=== PATIENT | male | born 1960 | race Caucasian/White ===

== ENCOUNTER 2017-03-27 18:47 | Emergency (ER) | payer OTHER ==
[2017-03-27 21:03] VITALS: BP 109/63; PULSE 92; RESP 19; TEMP 97.9; O2SAT 99
--- NOTE | 2017-03-27 21:53 | PD ---
HPI Chief Complaint: Psychiatric Symptoms Time Seen by Provider: 21:50 Travel History International Travel<30 days: No Contact w/Intl Traveler<30days: No Traveled to known affect area: No History of Present Illness HPI 56-year-old male that presents to the ED for evaluation of psychiatric illness. Patient was Mai acted by police after apparently he came to one of the police men and he told him that he wanted them to shoot him. Per patient he is been battling depression for years. He has a history of depression and anxiety and continues to take Wellbutrin as well as gabapentin but he's not been able to take it for the past 3 months for unclear reasons. He does state that he uses drugs including K2 and drinks starting today. He has no other medical issues. He denies any history of diabetes or high blood pressure. No pain or cuts. No other medical problems at this time. Symptoms appear to have worsened today secondary to drinking alcohol today worsening of depression. PFSH Past Medical History Anxiety: Yes Depression: Yes Social History Alcohol Use: Yes (sober x 2 years, started back today) Tobacco Use: No Substance Use: Yes (K2) Review of Systems Except as stated in HPI: all other systems reviewed are Neg Physical Exam Narrative GENERAL: SKIN: Warm and dry. HEAD: Atraumatic. Normocephalic. EYES: Pupils equal and round. No scleral icterus. No injection or drainage. ENT: No nasal bleeding or discharge. Mucous membranes pink and moist. Tongue is midline. No uvula deviation. NECK: Trachea midline. No JVD. CARDIOVASCULAR: Regular rate and rhythm. No murmurs, S3, S4. RESPIRATORY: No accessory muscle use. Clear to auscultation. Breath sounds equal bilaterally. GASTROINTESTINAL: Abdomen soft, non-tender, nondistended. Hepatic and splenic margins not palpable. MUSCULOSKELETAL: Extremities without clubbing, cyanosis, or edema. No obvious deformities. Full range of motion of the upper and lower extremities bilaterally. 2+ pulses bilaterally. NEUROLOGICAL: Awake and alert. No obvious cranial nerve deficits. Motor grossly within normal limits. Five out of 5 muscle strength in the arms and legs. Normal speech. PSYCHIATRIC: Appropriate mood and affect; insight and judgment normal. Data Data Last Documented VS Vital Signs Date Time Temp Pulse Resp B/P Pulse Ox O2 Delivery O2 Flow Rate FiO2 03/27/17 21:03 97.9 92 19 109/63 99 Room Air Orders Complete Blood Count With Diff (03/27/17 20:28) Comprehensive Metabolic Panel (03/27/17 20:28) Psych Screen (03/27/17 20:28) Drug Screen, Random Urine (03/27/17 20:28) Alcohol (Ethanol) (03/27/17 20:28) Salicylates (Aspirin) (03/27/17 20:28) Tylenol (Acetaminophen) (03/27/17 20:28) MDM Medical Decision Making Medical Screen Exam Complete: Yes Emergency Medical Condition: Yes Medical Record Reviewed: Yes Differential Diagnosis Depression versus suicidal ideation versus anxiety versus adjustment disorder versus mood disorder versus bipolar disorder versus schizophrenia versus paranoid disorder versus psychosis versus substance abuse versus alcohol abuse versus alcohol induced psychosis versus homicidality addition versus cutting versus personality disorder Narrative Course 56-year-old female that presents to the ED for elevation of psychiatric illness. Patient was properly examined and was found to have signs and symptoms very consistent what appears to be psychiatric illness. No sign of acute medical distress. Labs were drawn. Patient will be medically clear. Okay to be seen by psych. Mental health screening was discussed with the patient. Diagnosis Primary Impression: Acute depression Additional Impression: Substance abuse Hugo Renteria Mar 27, 2017 21:53
[2017-03-27 22:00] VITALS: BP 103/59; PULSE 84; RESP 16; O2SAT 97
[2017-03-27 23:02] LABS: AUTOMATED NEUTROPHIL # 3.9 TH/MM3 (1.8-7.7); BASOPHIL % 0.3 % (0.0-2.0); EOSINOPHIL # 0.4 TH/MM3 (0-0.4); HEMATOCRIT 39.9 % (39.0-51.0); HEMO FLAGS DIFF FINAL; LYMPH % 35.8 % (9.0-44.0); LYMPHOCYTE # 2.7 TH/MM3 (1.0-4.8); MEAN CELL VOLUME 87.5 FL (80.0-100.0); MEAN CORPUSCULAR HEMOGLOBIN 30.5 PG (27.0-34.0); MEAN CORPUSCULAR HGB CONC 34.9 % (32.0-36.0); MONO % 6.4 % (0.0-8.0); NEUT % 51.5 % (16.0-70.0); PLATELET COUNT 257 TH/MM3 (150-450); RED BLOOD COUNT 4.56 MIL/MM3 (4.50-5.90); RED CELL DISTRIBUTION WIDTH 14.2 % (11.6-17.2); WHITE BLOOD COUNT 7.5 TH/MM3 (4.0-11.0)
[2017-03-27 23:05] LABS: ACETAMINOPHEN LESS THAN 2.0 MCG/ML (10.0-30.0); ALT (GPT) 33 U/L (12-78); ANION GAP 12 MEQ/L (5-15); AST (GOT) 18 U/L (15-37); BICARBONATE 23.3 MEQ/L (21.0-32.0); BLOOD UREA NITROGEN 8 MG/DL (7-18); CHLORIDE 111 MEQ/L (98-107); GLOMERULAR FILTRATION RATE 76 ML/MIN (>89); POTASSIUM 3.5 MEQ/L (3.5-5.1); SODIUM (NA) 146 MEQ/L (136-145)
[2017-03-27 23:07] LABS: ALKALINE PHOSPHATASE 88 U/L (45-117); TOTAL BILIRUBIN ADULT 0.5 MG/DL (0.2-1.0)
[2017-03-28 02:10] VITALS: BP 99/52; PULSE 65; RESP 18; O2SAT 98
[2017-03-28 06:00] VITALS: BP 124/77; PULSE 65; RESP 17; O2SAT 96
[2017-03-28] MEDS ORDERED: ACETAMINOPHEN 500 MG CPLT PO ONE (06:15)
[2017-03-28 06:16] LABS: AMPHETAMINE, URINE NEG (NEG); BARBITURATES, URINE NEG (NEG); COCAINE, URINE NEG (NEG)
[2017-03-28 10:43] VITALS: BP 118/72; PULSE 82; RESP 18; TEMP 98.9; O2SAT 99
--- NOTE | 2017-03-28 13:03 | PD ---
History of Present Illness Chief Complaint: Psychiatric Symptoms Time Seen by Provider: 12:30 Travel History International Travel<30 Days: No Contact w/Intl Traveler<30days: No Known affected area: No Legal Status Legal Status: Mai Act Mai Act Signed By: Lala Reeves History of Present Illness: History of Present Illness HPI 56-year-old male with history of alcohol dependence and a reported hx of depression who presents to the ED under a BA initiated by DUGLAS . The BA alleges that he approached a police detention attendant and asked the officer to shoot him and end his life. The patient presented to ED with BAL of 149. He was monitored in J pod and he presented no suicidality and no behavioral concerns. EMR is reviewed and no previous contact with [facility]. The patient is seen this morning with nurse Anni. He is alert, oriented and cooperative. He is clinically sober. Speech is clear and logical, goal directed. There is no psychosis and no percy. No significant depression or anxiety noted. He denies any suicidal or homicidal ideation, intent or plan. and states " I'm better now that I am sober. It was the first time I drank in 2 years. I had 2 [employer]. I am not suicidal. Actually it's better that they brought me here otherwise I might have ended up in snf". Patient is also requesting assistance in getting back on Wellbutrin which he reports helped him in the past . He is sleeping well and eating well. 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 2 YRS AGO) Psychiatric History Psychiatric History Hx Psychiatric Treatment: HX: DEPRESSION AND ANXIETY. History of Inpatient Treatment: Yes Guns or firearms in home: No Social History Single male. Moved from [place] 3 months ago. Is unemployed. Homeless. Hx Alcohol Use: Yes (sober x 2 years, started back today) Hx Tobacco Use: No Hx Substance Use: Yes (ALCOHOL, K2) Substance Use Type: Alcohol Hx of Substance Use Treatment: Yes ([facility] in [place] x 2 months.) Family Psychiatric History Negative Allergies-Medications (Allergen,Severity, Reaction): Coded Allergies: No Known Allergies (Unverified , 03/28/17) Reported Meds & Prescriptions Reported Meds & Active Scripts Active No Active Prescriptions or Reported Medications Review of Systems Except as stated in HPI: all other systems reviewed are Neg Exam Alert: Yes [place]: Person (ox4) Mood: Calm Affect: Appropriate Speech: Clear, Logical Eye Contact: Normal Memory Intact: Comment (No gross abnor,mmality) Hallucinations: Other (Negative) Delusions: No Suicidal: Ideation (denies any) Homicidal: Ideation (denies any) Insight/Judgement Fair. Not impaired. MDM Medical Decision Making Medical Record Reviewed: Yes Assessment/Plan 56 year old male with reported hx of depression as well as alcohol dependence with relapse after a period of 2 years of sobriety, under a BA. He was acting aggressive and agitated and had asked the police to shoot him. This in context of intoxication. At this time the patient is clinically sober and denies any suicidal or homicidal ideation. he presented no suicidality while in J pod and is now requesting discharge. he is also requesting where he can follow up with psychiatric treatment. We will refer to [facility] BA as he does not meet criteria and does not present any behaviors or acute psychiatric symptomatology. Orders Complete Blood Count With Diff (03/27/17 20:28) Comprehensive Metabolic Panel (03/27/17 20:28) Psych Screen (03/27/17 20:28) Drug Screen, Random Urine (03/27/17 20:28) Alcohol (Ethanol) (03/27/17 20:28) Salicylates (Aspirin) (03/27/17 20:28) Tylenol (Acetaminophen) (03/27/17 20:28) Diet Regular Basic (03/28/17 Breakfast) Acetaminophen (Tylenol) (03/28/17 06:15) Diet Regular Basic (03/28/17 Lunch) Results Vital Signs Date Time Temp Pulse Resp B/P Pulse Ox O2 Delivery O2 Flow Rate FiO2 03/28/17 10:43 98.9 82 18 118/72 99 Room Air 03/28/17 06:00 65 17 124/77 96 Room Air 03/28/17 02:10 65 18 99/52 98 Room Air 03/27/17 22:00 84 16 103/59 97 Room Air 03/27/17 21:03 97.9 92 19 109/63 99 Room Air Laboratory Tests Test 03/27/17 03/28/17 22:35 06:04 White Blood Count 7.5 Red Blood Count 4.56 Hemoglobin 13.9 Hematocrit 39.9 Mean Corpuscular Volume 87.5 Mean Corpuscular Hemoglobin 30.5 Mean Corpuscular Hemoglobin 34.9 Concent Red Cell Distribution Width 14.2 Platelet Count 257 Mean Platelet Volume 8.6 Neutrophils (%) (Auto) 51.5 Lymphocytes (%) (Auto) 35.8 Monocytes (%) (Auto) 6.4 Eosinophils (%) (Auto) 6.0 Basophils (%) (Auto) 0.3 Neutrophils # (Auto) 3.9 Lymphocytes # (Auto) 2.7 Monocytes # (Auto) 0.5 Eosinophils # (Auto) 0.4 Basophils # (Auto) 0.0 CBC Comment DIFF FINAL Differential Comment Sodium Level 146 Potassium Level 3.5 Chloride Level 111 Carbon Dioxide Level 23.3 Anion Gap 12 Blood Urea Nitrogen 8 Creatinine 1.02 Estimat Glomerular Filtration 76 Rate Random Glucose 126 Calcium Level 9.2 Total Bilirubin 0.5 Aspartate Amino Transf 18 (AST/SGOT) Alanine Aminotransferase 33 (ALT/SGPT) Alkaline Phosphatase 88 Total Protein 6.7 Albumin 3.5 Salicylates Level LESS THAN 1.7 Acetaminophen Level LESS THAN 2.0 Ethyl Alcohol Level 149 Urine Opiates Screen NEG Urine Barbiturates Screen NEG Urine Amphetamines Screen NEG Urine Benzodiazepines Screen NEG Urine Cocaine Screen NEG Urine Cannabinoids Screen NEG Diagnosis Primary Impression: Alcohol dependence with acute alcoholic intoxication Additional Impression: Substance abuse Ruled Out: Acute depression Psychiatrically Cleared: Yes Patient Instructions: General Instructions Additional Instructions: Follow up with [facility] outpatient. Prescriptions No Active Prescriptions or Reported Meds Disposition: DISCHARGE HOME Condition: Stable Problem Qualifiers Mikaela Mercado Mar 28, 2017 13:02
== END 2017-03-28 13:28 | disposition home or self-care (01) ==
LOC: NEDAMB 18:47 → NEPJ 03-28 13:28
DX: F10.229 Alcohol dependence with intoxication, unspecified (principal); F19.10 Other psychoactive substance abuse, uncomplicated; F41.9 Anxiety disorder, unspecified; M17.0 Bilateral primary osteoarthritis of knee
CPT/HCPCS: 80053; 80307; 85025; 99284

== ENCOUNTER 2017-05-21 09:25 | Emergency (ER) | payer SELFPAY ==
[~2017-05-21] VITALS: Ht 180.3 cm; Wt 106.0 kg
[2017-05-21 09:28] VITALS: BP 119/68; PULSE 94; RESP 18; TEMP 98.1; O2SAT 96
--- NOTE | 2017-05-21 10:04 | PD ---
HPI Chief Complaint: Skin Problem Time Seen by Provider: 10:04 Travel History International Travel<30 days: No Contact w/Intl Traveler<30days: No Traveled to known affect area: No History of Present Illness HPI 56-year-old male presents to emergency Department with complaint of an itchy rash to bilateral upper extremities for greater than 1 month and now to his left neck just recently. Patient says he is homeless and he sleeps on concrete and cardboard boxes. He says he sleeps in different places. Denies fever or vomiting. Has environmental exposures as is only sleeping outside. He uses different soaps when he showers at the [employer]. Has not taken any medications or tried any treatments to alleviate his symptoms. Symptoms are mild in severity. Has no other medical complaints. No known allergies. No other modifying factors or associated signs and symptoms. PFSH Past Medical History Hx Anticoagulant Therapy: No Arthritis: Yes (OSTEOARTHRITIS IN BOTH KNEES) Anxiety: Yes Depression: Yes Cardiovascular Problems: No Chemotherapy: No Cerebrovascular Accident: No Diabetes: No Hypertension: No Respiratory: No Seizures: No ?: Not Past Surgical History Hysterectomy: No Joint Replacement: Yes ([employer]. 2 YRS AGO) Social History Alcohol Use: Yes (sober x 2 years, started back today) Tobacco Use: No Substance Use: Yes (ALCOHOL, K2) Allergies-Medications (Allergen,Severity, Reaction): Coded Allergies: No Known Allergies (Unverified , 05/21/17) Reported Meds & Prescriptions Reported Meds & Active Scripts Active Bactrim DS (Sulfamethoxazole-Trimethoprim) 800-160 Mg Tab 1 Tab PO BID 10 Days Keflex (Cephalexin) 500 Mg Cap 500 Mg PO Q6H 10 Days Review of Systems Except as stated in HPI: all other systems reviewed are Neg Physical Exam Narrative GENERAL: Well-nourished, well-developed male patient, in no acute distress; afebrile, nontoxic-appearing, disheveled SKIN: Warm and dry. Multiple lesions in different stages, some crusted, some scabbed, some dry to bilateral upper extremities and one lesion noted to the left neck and left upper back; no drainage noted to any of the areas; some are surrounded by very mild erythema. Bilateral upper extremities are supple and nontense with 2+ radial pulses and sensory intact without erythema or edema. HEAD: Atraumatic. Normocephalic. EYES: Pupils equal and round. No scleral icterus. No injection or drainage. ENT: Mucosa pink and moist. Airway patent. NECK: Trachea midline. CARDIOVASCULAR: Regular rate. RESPIRATORY: No accessory muscle use. GASTROINTESTINAL: Rounded. MUSCULOSKELETAL: No obvious deformities. No clubbing. No cyanosis. No edema. NEUROLOGICAL: Awake and alert. Oriented 3. No obvious cranial nerve deficits. Motor grossly within normal limits. Normal speech. PSYCHIATRIC: Appropriate mood and affect; insight and judgment normal. Data Data Last Documented VS Vital Signs Date Time Temp Pulse Resp B/P (MAP) Pulse Ox O2 Delivery O2 Flow Rate FiO2 05/21/17 09:28 98.1 94 18 119/68 (85) 96 MDM Medical Decision Making Medical Screen Exam Complete: Yes Emergency Medical Condition: Yes Medical Record Reviewed: Yes Differential Diagnosis Impetigo, Staph infection, MRSA, bedbugs, contact dermatitis, hives Narrative Course 56-year-old male with nonspecific skin eruption. Patient states rash is itchy and it seems to be consistent with bedbugs. It has been over a month since he' s had the rash. I will treat the patient with Bactrim and Keflex for possible skin infection. She was afebrile and nontoxic-appearing. He denies fever, vomiting. Bactrim and Keflex prescriptions were filled and supplied to the patient for home. Instructed patient to follow up with primary care provider. Patient verbalizes understanding and agreement with treatment plan. Patient is medically cleared and stable for discharge. Discussed reasons to return to the emergency department. Patient agrees with treatment plan. The patients vital signs are stable and the patient is stable for outpatient follow-up and treatment. Patient discharged home, stable and in no acute distress. Diagnosis Primary Impression: Rash and other nonspecific skin eruption Referrals: [facility] Primary Care Physician Patient Instructions: Bed Bugs (ED), General Instructions, MRSA (Methicillin- Resistant Staphylococcus Aureus) (ED) Additional Instructions: [id number] topicals to reduce itch Benadryl as directed and as needed to reduce itch Follow-up with your primary care provider Return to the emergency department immediately with worsening of symptoms Med/Other Pt SpecificInfo: Prescription(s) given Scripts Sulfamethoxazole-Trimethoprim (Bactrim DS) 800-160 Mg Tab 1 TAB PO BID for Infection for 10 Days, TAB 0 Refills Prov: Marychuy Alfaro 05/21/17 Cephalexin (Keflex) 500 Mg Cap 500 MG PO Q6H for Infection for 10 Days, CAP 0 Refills Prov: Marychuy Alfaro 05/21/17 Disposition: 01 DISCHARGE HOME Condition: Stable Marychuy Alfaro May 21, 2017 10:04
[2017-05-21] MEDS ORDERED: CEPH-460 PO (10:08)
[2017-05-21] MEDS ORDERED: BACT800T5 PO (10:08)
== END 2017-05-21 10:22 | disposition home or self-care (01) ==
LOC: NEPK 09:25
DX: R21 Rash and other nonspecific skin eruption (principal); M19.90 Unspecified osteoarthritis, unspecified site; F41.9 Anxiety disorder, unspecified; F32.9 Major depressive disorder, single episode, unspecified; Z59.0 Homelessness
CPT/HCPCS: 99284

== ENCOUNTER 2017-08-12 19:39 | Emergency (ER) | payer OTHER ==
[~2017-08-12 19:39] MED LIST: BACT800T5 PO; CEPH-460 PO
[2017-08-12 21:32] LABS: AUTOMATED NEUTROPHIL # 5.3 TH/MM3 (1.8-7.7); BASOPHIL % 0.4 % (0.0-2.0); EOSINOPHIL # 0.4 TH/MM3 (0-0.4); EOSINOPHIL % 4.4 % (0.0-4.0); HEMATOCRIT 37.2 % (39.0-51.0); HEMO FLAGS DIFF FINAL; LYMPH % 31.9 % (9.0-44.0); LYMPHOCYTE # 2.9 TH/MM3 (1.0-4.8); MEAN CELL VOLUME 87.4 FL (80.0-100.0); MEAN CORPUSCULAR HEMOGLOBIN 31.3 PG (27.0-34.0); MEAN CORPUSCULAR HGB CONC 35.9 % (32.0-36.0); NEUT % 57.3 % (16.0-70.0); PLATELET COUNT 206 TH/MM3 (150-450); RED BLOOD COUNT 4.26 MIL/MM3 (4.50-5.90); RED CELL DISTRIBUTION WIDTH 13.9 % (11.6-17.2); WHITE BLOOD COUNT 9.2 TH/MM3 (4.0-11.0)
[2017-08-12 21:50] LABS: ALT (GPT) 23 U/L (12-78)
[2017-08-12 21:51] VITALS: BP 106/57; PULSE 66; RESP 16; TEMP 97.6; O2SAT 96
[2017-08-12 21:52] LABS: ALKALINE PHOSPHATASE 98 U/L (45-117); TOTAL BILIRUBIN ADULT 0.4 MG/DL (0.2-1.0)
[2017-08-12 21:54] LABS: ANION GAP 6 MEQ/L (5-15); AST (GOT) 24 U/L (15-37); BICARBONATE 23.6 MEQ/L (21.0-32.0); BLOOD UREA NITROGEN 14 MG/DL (7-18); CHLORIDE 111 MEQ/L (98-107); GLOMERULAR FILTRATION RATE 58 ML/MIN (>89); POTASSIUM 3.7 MEQ/L (3.5-5.1); SODIUM (NA) 141 MEQ/L (136-145)
[2017-08-12 22:00] LABS: ACETAMINOPHEN LESS THAN 2.0 MCG/ML (10.0-30.0); ALCOHOL LESS THAN 3 MG/DL (0-5)
[2017-08-12] MEDS ORDERED: IBUPROFEN 800 MG TAB PO ONE (22:15)
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
[2017-08-13 01:43] VITALS: BP 102/60; PULSE 62; RESP 20; O2SAT 98
[2017-08-13 06:22] VITALS: BP 140/77; PULSE 56; RESP 20; O2SAT 100
[2017-08-13 18:38] VITALS: BP 131/73; PULSE 56; RESP 17; O2SAT 98
[2017-08-13] MEDS ORDERED: IBUPROFEN 800 MG TAB PO ONE (18:45)
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
== END 2017-08-13 20:52 ==
LOC: NEDAMB 19:39 → NEPJ 08-13 20:52
DX: F10.10 Alcohol abuse, uncomplicated (principal); F32.9 Major depressive disorder, single episode, unspecified; F41.9 Anxiety disorder, unspecified; M17.0 Bilateral primary osteoarthritis of knee
CPT/HCPCS: 80053; 80307; 85025; 99284

== ENCOUNTER 2017-09-07 18:41 | Inpatient (IN) | payer OTHER ==
[~2017-09-07] VITALS: Ht 180.3 cm; Wt 101.4 kg
[2017-09-07 19:10] VITALS: BP 117/70; PULSE 62; RESP 18; TEMP 98.8; O2SAT 99
--- NOTE | 2017-09-07 19:45 | PD ---
HPI Chief Complaint: Psychiatric Symptoms Time Seen by Provider: 19:40 Travel History International Travel<30 days: No Contact w/Intl Traveler<30days: No Traveled to known affect area: No History of Present Illness HPI 56-year-old white male presents to emergency department under Mai act by PD. Patient had notified police that if he did not get help for his K2 addiction he would kill himself. He has notified police that he would d[place] himself in the river. The patient here states that he is homeless on the streets. He is been living in the area for the past few years. He had moved from [place] to [place] then to [facility]. This is a patient who had been seen here in the past. Patient has been off his medications now for several months. He states that he cannot get anyone to fill his medications for free. When he gets money he states that he would prefer to smoke K2 and marijuana. Patient denies any homicidal ideation. No toxic ingestion. No recent illness. He has had a abrasion to his right wrist from a fall earlier this past week. [place] the bridge. PFSH Past Medical History Hx Anticoagulant Therapy: No Arthritis: Yes (OSTEOARTHRITIS IN BOTH KNEES) Anxiety: Yes Depression: Yes Cardiovascular Problems: No Chemotherapy: No Cerebrovascular Accident: No Diabetes: No Diminished Hearing: No Hypertension: No Respiratory: No Seizures: No Tetanus Vaccination: < 5 Years Past Surgical History Narrative Surgical Rotator cuff repair Hysterectomy: No Social History Alcohol Use: Yes (sober x 2 years, started back 06/2017) Tobacco Use: No Substance Use: Yes (DAILY K2) Allergies-Medications (Allergen,Severity, Reaction): Coded Allergies: No Known Allergies (Unverified , 05/21/17) Reported Meds & Prescriptions Reported Meds & Active Scripts Active No Active Prescriptions or Reported Medications Review of Systems General / Constitutional: No: Fever Eyes: No: Visual changes HENT: No: Headaches Cardiovascular: No: Chest Pain or Discomfort Respiratory: No: Shortness of Breath Gastrointestinal: No: Abdominal Pain Genitourinary: No: Dysuria Musculoskeletal: No: Pain Skin: No Rash Neurologic: No: Weakness Psychiatric: Positive: Suicidal Ideations, Mood Disorder, Substance Abuse, No: Anxiety, Depression, Disorder of Thought, Homicidal Ideation Endocrine: No: Polydipsia Hematologic/Lymphatic: No: Easy Bruising Physical Exam Narrative GENERAL: Well-nourished, well-developed patient. SKIN: Warm and dry. There is a healing abrasion to the right wrist HEAD: Normocephalic and atraumatic. EYES: No scleral icterus. No injection or drainage. ENT: No nasal drainage noted. Mucous membranes pink. Airway patent. NECK: Supple, trachea midline. Moves head freely without obvious discomfort. CARDIOVASCULAR: Regular rate and rhythm without murmurs, gallops, or rubs. RESPIRATORY: Breath sounds equal bilaterally. No accessory muscle use. GASTROINTESTINAL: Abdomen soft, non-tender, nondistended. EXTREMITIES: No cyanosis or edema. BACK: Nontender without obvious deformity. No CVA tenderness. NEURO: Patient is alert and oriented. no sensorimotor deficits. Nonfocal. Normal speech. PSYCH: No delusions. No auditory or visual hallucinations. Data Data Last Documented VS Vital Signs Date Time Temp Pulse Resp B/P (MAP) Pulse Ox O2 Delivery O2 Flow Rate FiO2 09/07/17 19:10 98.8 62 18 117/70 (86) 99 Room Air Orders Orders Psych Screen (09/07/17 19:06) Drug Screen, Random Urine (09/07/17 19:06) Alcohol (Ethanol) (09/07/17 19:06) Labs Laboratory Tests Test 09/07/17 19:15 09/07/17 21:05 Ethyl Alcohol Level LESS THAN 3 MG/DL Urine Opiates Screen NEG Urine Barbiturates Screen NEG Urine Amphetamines Screen NEG Urine Benzodiazepines Screen NEG Urine Cocaine Screen NEG Urine Cannabinoids Screen POS MDM Medical Decision Making Medical Screen Exam Complete: Yes Emergency Medical Condition: Yes Medical Record Reviewed: Yes Interpretation(s) Laboratory Tests Test 09/07/17 19:15 09/07/17 21:05 Ethyl Alcohol Level LESS THAN 3 MG/DL Urine Opiates Screen NEG Urine Barbiturates Screen NEG Urine Amphetamines Screen NEG Urine Benzodiazepines Screen NEG Urine Cocaine Screen NEG Urine Cannabinoids Screen POS Differential Diagnosis MDM: High Differential diagnoses: Schizophrenia, schizoaffective disorder, bipolar, anxiety, depression, adjustment reaction, mood disorder NOS, ODD, depressive disorder NOS, dementia, dementia with agitation, psychosis NOS, substance induced mood disorder, DMDD, Asperger syndrome, infection,electrolyte abnormality, malingering. Narrative Course Mental health screening discussed with the patient. Psychiatric screen ordered. The patient's been medically cleared. This is medical clearance for psychiatric admission Diagnosis Primary Impression: Medical clearance for psychiatric admission Additional Impression: Substance abuse Scripts No Active Prescriptions or Reported Meds Condition: Stable Jesse Smith Sep 07, 2017 19:45
[2017-09-07 22:22] VITALS: BP 107/51; PULSE 51; RESP 19; TEMP 98.3; O2SAT 95
[2017-09-08 05:32] VITALS: BP 123/68; PULSE 66; RESP 18; TEMP 98.6; O2SAT 97
[2017-09-08] MEDS ORDERED: NICOTINE 21 MG/24 HR PATCH T-DERMAL PRN (10:15)
[2017-09-08] MEDS ORDERED: BENZTROPINE MESYLATE 2 MG/2 ML VIAL IM PRN (10:15)
[2017-09-08] MEDS ORDERED: hydrOXYzine HCL 50 MG TAB PO PRN (10:15)
[2017-09-08] MEDS ORDERED: ACETAMINOPHEN 325 MG TAB PO PRN (10:15)
[2017-09-08] MEDS ORDERED: ALUMINUM/MAGNESIUM/SIMETH 30 ML CUP PO PRN (10:15)
[2017-09-08] MEDS ORDERED: MAGNESIUM HYDROXIDE SUSP 30 ML CUP PO PRN (10:15)
[2017-09-08] MEDS ORDERED: BENZTROPINE MESYLATE 1 MG TAB PO PRN (10:15)
--- NOTE | 2017-09-08 11:06 | MH ---
cc: DONIS RICHARDSON DATE OF ADMISSION: 09/08/2017 ADMITTING DIAGNOSES 1. Adjustment disorder with depressed mood, F43.21. 2. Polysubstance abuse including cannabis, K2 and historically alcohol, F19.10. LEGAL STATUS The patient is capacitated to consent for admission and for medications. Voluntary status. HISTORY OF PRESENT ILLNESS Mr. Leonardo is a 56-year-old male with a reported history of depression and anxiety who presents under a Mai Act by law enforcement alleging that the patient called saying that he had nothing to live for and if he did not receive any help he was going to drown himself in the river. He told the officers that he has been smoking K2 and cannot find a way to quit. Reviewing the electronic medical record, I note that the patient was seen in consultation back in March of this year by Nurse Practitioner Rogelio when he presented after asking an officer to shoot him in the setting of alcohol intoxication. The patient seen and examined. Chart reviewed. Case discussed with nursing staff. On my examination today, the patient presents as tearful and dysphoric. He says that he has been smoking K2 because he knows that other people have by doing so. He says that he is smoking it "hoping to go to sleep and not wake up." He tells me that he is distressed because "I'm just having a very lonely homeless life. I don't want to do it anymore." He reports depression, hopelessness, worthless feelings. No reported sleep or appetite disturbances. Anhedonia is present. No hypomanic or manic symptoms now or by history. He denies audiovisual hallucinations. I can elicit no delusional material. The remainder of the psychiatric ROS is negative. He has no physical complaints at this time. PAST PSYCHIATRIC HISTORY The patient reports a history of depression and anxiety. He is not currently under the care of a psychiatrist. Apparently he has been referred for outpatient psychiatric services but has been frustrated at the wait time and has not followed up. He reports he has done best in the past on Wellbutrin 300 mg a day and gabapentin 300 mg three times a day but has not taken any psychotropics since December of this year. No reported seizure history or history of eating disorder. He denies any history of psychiatric admissions. He reports one previous suicide attempt by overdose on Tylenol PM. FAMILY HISTORY The patient denies a family history of suicide or serious mental illness. CHEMICAL DEPENDENCY HISTORY The patient reports that lately he has been smoking K2 and cannabis. He does not report any recent alcohol use or other substance use. SOCIAL HISTORY The patient is homeless. He reports that he had been residing in a homeless care home or some sort of transitional housing until about 10 months ago when he was kicked out reportedly because he took his cell phone into his room which was an infraction of the rules of the facility. He has a 6th grade education. He does not work and has no income. He is single with no children. Denies any history. Denies any legal history. No reported access to guns or firearms. PAST MEDICAL HISTORY The patient denies any medical history. MEDICATIONS On no medications presently. ALLERGIES NO KNOWN ALLERGIES. PHYSICAL EXAMINATION VITAL SIGNS: Temp 98.6, pulse 66, respirations 18, blood pressure 123/68, pulse oximetry 97% on room air. Physical examination was completed by the ED provider. On my examination today, the patient appears to be in no acute physical distress. No motor abnormalities noted. LABORATORIES Laboratories reviewed: Urine toxicology positive for cannabinoids. Alcohol level undetectable. No CBC or CMP or other laboratories were performed this admission. MENTAL STATUS EXAMINATION The patient is in hospital attire. He is somewhat disheveled but maintaining basic hygiene. He is awake and alert and oriented x4. No evidence of delirium. No motor abnormalities noted. Speech is within normal limits for rate, tone and volume. Language and fund of knowledge are average. Focus and concentration intact. Memory grossly intact on clinical exam. Mood is depressed and affect is restricted, tearful and dysphoric. Thought process linear. No loosening of associations. No delusional material elicited. Denies audiovisual hallucinations. Endorses vague suicidal ideation with plan to smoke enough K2 to kill him. No reported urge to hurt himself on the inpatient unit. No homicidal ideation. Insight and judgment are fair at best. ASSESSMENT AND PLAN This is a 56-year-old male with psychiatric history as detailed above who presents under a Mai Act. On my examination today, the patient reports ongoing dysphoria, chiefly related to his social situation. It is possible that he is malingering his current psychiatric symptoms for care home although his tearfulness and general presentation do not seem terribly ingenuine. I will plan to admit the patient to the inpatient unit for observation and also to resume the medications that were reportedly previously efficacious for him. Admit inpatient. Voluntary status. Check a CBC and CMP now and check a TSH, lipid panel and hemoglobin A1c in the morning. Barring any clinically significant laboratory abnormalities, I will plan to start the patient on Wellbutrin SR 150 mg daily with plans to titrate to reportedly efficacious dose of 300 mg in divided doses. I will also resume his gabapentin 300 mg three times daily. I will provide Atarax as needed for anxiety, Cogentin as needed for EPS, Benadryl as needed for sleep. The patient does not report any recent GABAergic use and we will monitor for signs of withdrawal. Vitals every shift. Counselor to see. Disposition planning. Estimated length of stay: 3-5 days. Donis Richardson DC/JUDI /9:55 AM /10:26 AM ALINA
[2017-09-08] MEDS: REMOVE OLD NICODERM (NICOTINE) PATCH T-DERMAL SCH (12:50)
[2017-09-08 12:55] VITALS: BP 142/87; PULSE 61; RESP 18; TEMP 97.5; O2SAT 98
[2017-09-08] MEDS: GABAPENTIN 300 MG CAP PO SCH ×2 (13:34→17:07)
[2017-09-08 16:30] LABS: AUTOMATED NEUTROPHIL # 5.5 TH/MM3 (1.8-7.7); BASOPHIL % 0.3 % (0.0-2.0); EOSINOPHIL # 0.4 TH/MM3 (0-0.4); EOSINOPHIL % 3.8 % (0.0-4.0); HEMOGLOBIN 14.5 GM/DL (13.0-17.0); LYMPH % 29.5 % (9.0-44.0); LYMPHOCYTE # 2.8 TH/MM3 (1.0-4.8); MEAN CELL VOLUME 87.7 FL (80.0-100.0); MEAN CORPUSCULAR HEMOGLOBIN 30.9 PG (27.0-34.0); MEAN CORPUSCULAR HGB CONC 35.3 % (32.0-36.0); MEAN PLATELET VOLUME 9.7 FL (7.0-11.0); MONO % 7.1 % (0.0-8.0); MONOCYTE # 0.7 TH/MM3 (0-0.9); NEUT % 59.3 % (16.0-70.0); PLATELET COUNT 274 TH/MM3 (150-450); RED BLOOD COUNT 4.68 MIL/MM3 (4.50-5.90); RED CELL DISTRIBUTION WIDTH 13.8 % (11.6-17.2); WHITE BLOOD COUNT 9.3 TH/MM3 (4.0-11.0)
[2017-09-08 16:54] LABS: ALBUMIN 3.9 GM/DL (3.4-5.0); AST (GOT) 14 U/L (15-37); BICARBONATE 27.7 MEQ/L (21.0-32.0); BLOOD UREA NITROGEN 16 MG/DL (7-18); CALCIUM 10.3 MG/DL (8.5-10.1); CHLORIDE 103 MEQ/L (98-107); CREATININE 1.17 MG/DL (0.60-1.30); GLOMERULAR FILTRATION RATE 65 ML/MIN (>89); GLUCOSE,RANDOM 90 MG/DL (74-106); SODIUM (NA) 139 MEQ/L (136-145)
[2017-09-08 16:56] LABS: ALT (GPT) 22 U/L (12-78)
[2017-09-08 16:58] LABS: ALKALINE PHOSPHATASE 92 U/L (45-117); TOTAL BILIRUBIN ADULT 0.6 MG/DL (0.2-1.0); TOTAL PROTEIN 7.5 GM/DL (6.4-8.2)
[2017-09-08 18:14] VITALS: BP 118/76; PULSE 63; RESP 18; TEMP 98; O2SAT 100
[2017-09-08] MEDS: diphenhydrAMINE HCL 50 MG CAP PO PRN (20:53)
[2017-09-09 06:01] VITALS: BP 117/68; PULSE 70; RESP 16; TEMP 97.5; O2SAT 96
[2017-09-09] MEDS: GABAPENTIN 300 MG CAP PO SCH ×3 (08:44→17:19)
[2017-09-09] MEDS: buPROPion HCL 150 MG SUSTAINED RELEASE TAB PO SCH (08:44)
[2017-09-09 10:21] LABS: CHOLESTEROL 202 MG/DL (120-200); TRIGLYCERIDES 146 MG/DL (42-150)
[2017-09-09 10:30] LABS: HDL CHOLESTEROL 54.5 MG/DL (40.0-60.0); LDL CHOLESTEROL 118 MG/DL (0-99)
[2017-09-09 12:57] LABS: HEMOGLOBIN A1C 5.1 % (4.3-6.0)
--- NOTE | 2017-09-09 14:59 | HHI.PYPN ---
Subjective Remarks Pt seen and discussed with staff. He reports that he is still depressed but feeling a better today. He reports decreased SI. This afternoon, he became agitated and rambled about tax payers paying for his hospitalization and demanding discharge. He calmed down. During rounds he states that he is worried about being able to pay for medications without insurance at discharge. He states that he has tried several SSRIs but wellbutrin is only antidepressant that has consistently worked for him. He states that K2 is $5 and he has been using it as a substitute for treatment but desires sobriety. Mental Status Examination Appearance: Appropriate Consciousness: Alert Orientation: x4 Language: Adequate Fund of Knowledge: Adequate Attention and Concentration: Adequate Memory: Unremarkable Mood: Sad, Irritable Affect: Labile Thought Process & Associations: Intact Thought Content: Appropriate Hallucination Type: None Delusion Type: None Suicidal Ideation: Yes (decreased, intermittent) Suicidal Plan: No Suicidal Intention: No Homicidal Ideation: No Homicidal Plan: No Homicidal Intention: No Results Labs Test 09/08/17 15:53 09/09/17 08:55 White Blood Count 9.3 TH/MM3 Red Blood Count 4.68 MIL/MM3 Hemoglobin 14.5 GM/DL Hematocrit 41.0 % Mean Corpuscular Volume 87.7 FL Mean Corpuscular Hemoglobin 30.9 PG Mean Corpuscular Hemoglobin Concent 35.3 % Red Cell Distribution Width 13.8 % Platelet Count 274 TH/MM3 Mean Platelet Volume 9.7 FL Neutrophils (%) (Auto) 59.3 % Lymphocytes (%) (Auto) 29.5 % Monocytes (%) (Auto) 7.1 % Eosinophils (%) (Auto) 3.8 % Basophils (%) (Auto) 0.3 % Neutrophils # (Auto) 5.5 TH/MM3 Lymphocytes # (Auto) 2.8 TH/MM3 Monocytes # (Auto) 0.7 TH/MM3 Eosinophils # (Auto) 0.4 TH/MM3 Basophils # (Auto) 0.0 TH/MM3 CBC Comment DIFF FINAL Differential Comment Blood Urea Nitrogen 16 MG/DL Creatinine 1.17 MG/DL Random Glucose 90 MG/DL Total Protein 7.5 GM/DL Albumin 3.9 GM/DL Calcium Level 10.3 MG/DL Alkaline Phosphatase 92 U/L Aspartate Amino Transf (AST/SGOT) 14 U/L Alanine Aminotransferase (ALT/SGPT) 22 U/L Total Bilirubin 0.6 MG/DL Sodium Level 139 MEQ/L Potassium Level 4.1 MEQ/L Chloride Level 103 MEQ/L Carbon Dioxide Level 27.7 MEQ/L Anion Gap 8 MEQ/L Estimat Glomerular Filtration Rate 65 ML/MIN Hemoglobin A1c 5.1 % Triglycerides Level 146 MG/DL Cholesterol Level 202 MG/DL LDL Cholesterol 118 MG/DL HDL Cholesterol 54.5 MG/DL Cholesterol/HDL Ratio 3.70 RATIO Thyroid Stimulating Hormone 3rd Gen 2.010 uIU/ML Vitals/IOs Vital Signs Date Time Temp Pulse Resp B/P (MAP) Pulse Ox O2 Delivery O2 Flow Rate FiO2 09/09/17 06:01 97.5 70 16 117/68 (84) 96 09/08/17 05:32 Room Air Assessment & Plan Problem List: (1) Acute depression ICD Codes: F32.9 - Major depressive disorder, single episode, unspecified Status: Acute (2) Substance abuse ICD Codes: F19.10 - Other psychoactive substance abuse, uncomplicated Status: Acute Assessment & Plan Continue current tx plan Estimated LOS: days Justification for Cont. Inpt. monitoring for safety Maryann Galan MD Sep 09, 2017 14:59
[2017-09-09 16:54] VITALS: BP 154/105; PULSE 64; RESP 18; TEMP 98.7; O2SAT 97
[2017-09-09] MEDS: REMOVE OLD NICODERM (NICOTINE) PATCH T-DERMAL SCH (21:00)
[2017-09-09] MEDS: diphenhydrAMINE HCL 50 MG CAP PO PRN (21:43)
[2017-09-10 05:55] VITALS: BP 128/67; PULSE 83; RESP 17; TEMP 98.4; O2SAT 96
[2017-09-10] MEDS: buPROPion HCL 150 MG SUSTAINED RELEASE TAB PO SCH ×2 (09:09→13:27)
[2017-09-10] MEDS: GABAPENTIN 300 MG CAP PO SCH ×3 (09:09→17:47)
--- NOTE | 2017-09-10 11:39 | HHI.PYPN ---
Subjective Remarks Patient seen and examined with nurse. Chart reviewed. Case discussed with nursing staff. On my examination today, mood is slowly improving. He denies any SI or HI. Denies AVH. He says that he uses drawing as a coping mechanism and has produced some very precise geometric sketches of football team names. Denies side effects from medications. Says that gabapentin is helping with knee pain. He would like to titrate his Wellbutrin back to previously reported efficacious dose. No other physical complaints. Review of Systems Except as stated in HPI: all other systems reviewed are Neg Mental Status Examination Appearance: Appropriate Consciousness: Alert Orientation: x4 Motor Activity: Normal gait, Other (no motoric abnormalities noted) Speech: Unremarkable Language: Adequate Fund of Knowledge: Adequate Attention and Concentration: Adequate Memory: Unremarkable Mood: Sad (improving) Affect: Appropriate Thought Process & Associations: Intact, Logical, Linear Thought Content: Appropriate Hallucination Type: None Delusion Type: None Suicidal Ideation: No Suicidal Plan: No Suicidal Intention: No Homicidal Ideation: No Homicidal Plan: No Homicidal Intention: No Insight: Fair Judgment: Adequate (fair) Results Labs Labs reviewed. No new labs. Vitals/IOs Vital Signs Date Time Temp Pulse Resp B/P (MAP) Pulse Ox O2 Delivery O2 Flow Rate FiO2 09/10/17 05:55 98.4 83 17 128/67 (87) 96 09/08/17 05:32 Room Air Assessment & Plan Problem List: (1) Acute depression ICD Codes: F32.9 - Major depressive disorder, single episode, unspecified Status: Acute (2) Substance abuse ICD Codes: F19.10 - Other psychoactive substance abuse, uncomplicated Status: Acute Assessment & Plan Titrate Wellbutrin to 150 mg twice daily to target low mood. Check BMP in the morning to follow-up GFR. Continue to monitor on an inpatient unit. Continue other medications and care as ordered. Justification for Cont. Inpt. Med changes. High risk for decompensation and less restrictive environment. Discharge Planning Pending psychiatric stabilization Request HC Surrog/Guard Advoc?: No William Richardson MD Sep 10, 2017 11:39
[2017-09-10 17:00] VITALS: BP 143/74; PULSE 75; RESP 18; TEMP 97.4; O2SAT 97
[2017-09-10] MEDS: diphenhydrAMINE HCL 50 MG CAP PO PRN (20:51)
[2017-09-10] MEDS: REMOVE OLD NICODERM (NICOTINE) PATCH T-DERMAL SCH (20:52)
[2017-09-11 06:50] VITALS: BP 124/71; PULSE 62; RESP 18; TEMP 97.9
[2017-09-11 07:56] LABS: BICARBONATE 29.8 MEQ/L (21.0-32.0); CALCIUM 10.3 MG/DL (8.5-10.1)
[2017-09-11 07:57] LABS: CREATININE 1.24 MG/DL (0.60-1.30)
[2017-09-11] MEDS: GABAPENTIN 300 MG CAP PO SCH ×3 (08:34→17:09)
[2017-09-11] MEDS: buPROPion HCL 150 MG SUSTAINED RELEASE TAB PO SCH ×2 (08:34→15:00)
--- NOTE | 2017-09-11 13:20 | HHI.PYPN ---
Subjective Remarks Patient seen in [facility] with nurse Arellano, chart review, patient compliant medication. Patient continues somewhat anxious nervous in irritable though denies suicidality. He states that it would be no trouble if he were . Has been no behavioral issues.. Feels medication is time to help somewhat. He states he somewhat's with no funding. Except Sunday he makes his drawings. We did discuss possibility of sober living situation such as [facility] . Will of counselor give him information concerning that. He seemed quite agreeable to investigating it. For now continue treatment will continue to titrate the Wellbutrin S Review of Systems Except as stated in HPI: all other systems reviewed are Neg Mental Status Examination Appearance: Appropriate Consciousness: Alert Orientation: x4 Motor Activity: Normal gait, Other (no motoric abnormalities noted) Speech: Unremarkable Language: Adequate Fund of Knowledge: Adequate Attention and Concentration: Adequate Memory: Unremarkable Mood: Sad (improving) Affect: Appropriate Thought Process & Associations: Intact, Logical, Linear Thought Content: Appropriate Hallucination Type: None Delusion Type: None Suicidal Ideation: No Suicidal Plan: No Suicidal Intention: No Homicidal Ideation: No Homicidal Plan: No Homicidal Intention: No Insight: Fair Judgment: Adequate (fair) Results Labs Test 09/11/17 06:58 Blood Urea Nitrogen 23 MG/DL Creatinine 1.24 MG/DL Random Glucose 101 MG/DL Calcium Level 10.3 MG/DL Sodium Level 139 MEQ/L Potassium Level 4.7 MEQ/L Chloride Level 106 MEQ/L Carbon Dioxide Level 29.8 MEQ/L Anion Gap 3 MEQ/L Estimat Glomerular Filtration Rate 61 ML/MIN Vitals/IOs Vital Signs Date Time Temp Pulse Resp B/P (MAP) Pulse Ox O2 Delivery O2 Flow Rate FiO2 09/11/17 06:50 97.9 62 18 124/71 (88) 09/10/17 17:00 97 09/08/17 05:32 Room Air Intake and Output 09/11/17 09/11/17 09/12/17 08:00 16:00 00:00 Intake Total 240 ml Balance 240 ml Assessment & Plan Problem List: (1) Substance abuse ICD Codes: F19.10 - Other psychoactive substance abuse, uncomplicated Status: Acute (2) Severe major depression, single episode, without psychotic features ICD Codes: F32.2 - Major depressive disorder, single episode, severe without psychotic features Assessment & Plan Estimated LOS: days patient continues depressed though today he denies suicidality. He has been compliant with medication. We did discuss possible placement issues Justification for Cont. Inpt. At this time patient will decompensate with placement lower level of care Discharge Planning Continue work on placement issues perhaps a sober living house locally Request HC Surrog/Guard Advoc?: No Delbert Islas MD Sep 11, 2017 13:20
[2017-09-11 18:34] VITALS: BP 125/71; PULSE 73; RESP 18; TEMP 98.3; O2SAT 94
[2017-09-11 18:35] VITALS: BP 125/71; PULSE 73; RESP 18; TEMP 98.3; O2SAT 94
[2017-09-11] MEDS: diphenhydrAMINE HCL 50 MG CAP PO PRN (20:33)
[2017-09-12 05:47] VITALS: BP 110/69; PULSE 62; RESP 17; TEMP 97.8; O2SAT 95
[2017-09-12 08:42] LABS: BICARBONATE 25.3 MEQ/L (21.0-32.0); BLOOD UREA NITROGEN 21 MG/DL (7-18); CALCIUM 10.3 MG/DL (8.5-10.1); CHLORIDE 104 MEQ/L (98-107); CREATININE 1.15 MG/DL (0.60-1.30); GLOMERULAR FILTRATION RATE 66 ML/MIN (>89); GLUCOSE,RANDOM 112 MG/DL (74-106); SODIUM (NA) 137 MEQ/L (136-145)
[2017-09-12 08:44] LABS: CHOLESTEROL 235 MG/DL (120-200); TRIGLYCERIDES 198 MG/DL (42-150)
[2017-09-12 08:46] LABS: CHOLESTEROL/ HDL RATIO 4.63 RATIO; HDL CHOLESTEROL 50.7 MG/DL (40.0-60.0); LDL CHOLESTEROL 145 MG/DL (0-99)
[2017-09-12] MEDS: NICOTINE 21 MG/24 HR PATCH T-DERMAL SCH (09:00)
[2017-09-12] MEDS: buPROPion HCL 150 MG SUSTAINED RELEASE TAB PO SCH ×2 (09:38→14:59)
[2017-09-12] MEDS: GABAPENTIN 300 MG CAP PO SCH ×3 (09:38→18:49)
--- NOTE | 2017-09-12 12:46 | HHI.PYPN ---
Subjective Remarks Patient seen today in his room with nurse gloria and counselor Rena, chart review, patient compliant medication. Patient still complains of some anxiety and nervousness, weakness insight into the fact that he is back on his medication at a been successful in the past. He knows it will take some time from them to take effect. He continues concern about placement. I discussed the fact that he is reaching his maximum benefit of this hospitalization. He wishes to attempt sea . I agreed to allow him today to attempt to find a placement otherwise patient will be discharged tomorrow as homeless placement with follow-up through [facility] Review of Systems Except as stated in HPI: all other systems reviewed are Neg Mental Status Examination Appearance: Appropriate Consciousness: Alert Orientation: x4 Motor Activity: Normal gait, Other (no motoric abnormalities noted) Speech: Unremarkable Language: Adequate Fund of Knowledge: Adequate Attention and Concentration: Adequate Memory: Unremarkable Mood: Sad (improving) Affect: Appropriate Thought Process & Associations: Intact, Logical, Linear Thought Content: Appropriate Hallucination Type: None Delusion Type: None Suicidal Ideation: No Suicidal Plan: No Suicidal Intention: No Homicidal Ideation: No Homicidal Plan: No Homicidal Intention: No Insight: Fair Judgment: Adequate (fair) Results Labs Test 09/12/17 07:48 Blood Urea Nitrogen 21 MG/DL Creatinine 1.15 MG/DL Random Glucose 112 MG/DL Calcium Level 10.3 MG/DL Sodium Level 137 MEQ/L Potassium Level 4.0 MEQ/L Chloride Level 104 MEQ/L Carbon Dioxide Level 25.3 MEQ/L Anion Gap 8 MEQ/L Estimat Glomerular Filtration Rate 66 ML/MIN Triglycerides Level 198 MG/DL Cholesterol Level 235 MG/DL LDL Cholesterol 145 MG/DL HDL Cholesterol 50.7 MG/DL Cholesterol/HDL Ratio 4.63 RATIO Vitals/IOs Vital Signs Date Time Temp Pulse Resp B/P (MAP) Pulse Ox O2 Delivery O2 Flow Rate FiO2 09/12/17 05:47 97.8 62 17 110/69 (83) 95 Assessment & Plan Problem List: (1) Substance abuse ICD Codes: F19.10 - Other psychoactive substance abuse, uncomplicated Status: Acute (2) Severe major depression, single episode, without psychotic features ICD Codes: F32.2 - Major depressive disorder, single episode, severe without psychotic features Assessment & Plan Estimated LOS: days patient depression is lifting though there is still some anxiety so this may be situational related to his homelessness. He does denies suicidality voices or visions. Patient will be given through today attempt time placement perhaps in a sober living situation. Otherwise anticipated discharge tomorrow to himself Justification for Cont. Inpt. Patient to use today to attempt to find a placement, otherwise discharge tomorrow Discharge Planning Patient attempting to find placement today if not discharge tomorrow Request HC Surrog/Guard Advoc?: No Delbert Islas MD Sep 12, 2017 12:46
[2017-09-12 16:48] LABS: HEMOGLOBIN A1C 5.1 % (4.3-6.0)
[2017-09-12 17:00] VITALS: BP 157/85; PULSE 81; RESP 18; TEMP 98.2; O2SAT 99
[2017-09-12] MEDS ORDERED: REMOVE OLD NICODERM (NICOTINE) PATCH T-DERMAL SCH (21:00)
[2017-09-13 06:30] VITALS: BP 121/70; PULSE 75; RESP 16; TEMP 98.1; O2SAT 97
[2017-09-13] MEDS: GABAPENTIN 300 MG CAP PO SCH (08:06)
[2017-09-13] MEDS: NICOTINE 21 MG/24 HR PATCH T-DERMAL SCH (08:28)
[2017-09-13] MEDS: buPROPion HCL 150 MG SUSTAINED RELEASE TAB PO SCH (08:28)
[2017-09-13] MEDS ORDERED: BUPR150CR PO (10:19)
[2017-09-13] MEDS ORDERED: NEUR300C PO (10:19)
--- NOTE | 2017-09-13 10:27 | HHI.DS ---
Psychiatry Discharge Summary Inpatient Psychiatric care?: Yes Advance Directive: No Reason Not Provided: Due to Patient Condition Mental Health AdvanceDirective: No Health Care Proxy: No Admission Admission Date Sep 08, 2017 at 10:05 Admission Diagnosis: (1) Severe major depression, single episode, without psychotic features ICD Code: F32.2 - Major depressive disorder, single episode, severe without psychotic features (2) Substance abuse ICD Code: F19.10 - Other psychoactive substance abuse, uncomplicated Brief History Please see initial psychiatric evaluation dictated by Dr. William Richardson on Tobacco Use In Past 30 Days: No Tobacco Past 30 Days Alcohol Use: Never Hospital Course Patient's hospital course was uneventful, visual compliant with his medication from admission. His depression suicidality slowly resolved. He complained of anxiety throughout the stay though is behaviors was somewhat inconsistent with that. We did discuss placement issues said is willing to find a sober living facility the law 1 was unavailable. I do feel perhaps some degree of manipulation with this since he appeared to enjoy his stay here. However at this time patient no longer meets criteria for inpatient psychiatric hospitalization thus I'll discharge patient today to himself Rx 1 month though follow Brien Marchman act and also refer to Brien Marchman act for outpatient voluntary substance abuse assessment Results Blood Pressure 121 / 70 Vital Signs Date Time Temp Pulse Resp B/P (MAP) Pulse Ox O2 Delivery O2 Flow Rate FiO2 09/13/17 06:30 98.1 75 16 121/70 (87) 97 Laboratory Tests Test 09/11/17 06:58 09/12/17 07:48 Blood Urea Nitrogen 23 MG/DL (7-18) 21 MG/DL (7-18) Calcium Level 10.3 MG/DL (8.5-10.1) 10.3 MG/DL (8.5-10.1) Anion Gap 3 MEQ/L (5-15) Estimat Glomerular Filtration Rate 61 ML/MIN (>89) 66 ML/MIN (>89) Random Glucose 112 MG/DL (74-106) Triglycerides Level 198 MG/DL (42-150) Cholesterol Level 235 MG/DL (120-200) LDL Cholesterol 145 MG/DL (0-99) Laboratory Results Test 09/12/17 07:48 Cholesterol Level 235 MG/DL (120-200) HDL Cholesterol 50.7 MG/DL (40.0-60.0) Hemoglobin A1c 5.1 % (4.3-6.0) LDL Cholesterol 145 MG/DL (0-99) Triglycerides Level 198 MG/DL (42-150) Summary of Procedures None done Pending results at discharge: No Medications # of Antipsychotic meds at D/C: 0 Approp Antipsych med options 1 - Minimum of three failed multiple trials of monotherapy. 2 - Documented plan to taper to monotherapy due to previous use of multiple meds OR cross-taper in progress at D/C. 3 - Documentation of augmentation of Clozapine. 4 - Justification other than those listed in allowable values 1-3, document here : Discharge Discharge Date: Sep 13, 2017 Discharge Diagnosis: (1) Severe major depression, single episode, without psychotic features Diagnosis: Principal ICD Code: F32.2 - Major depressive disorder, single episode, severe without psychotic features (2) Substance abuse Diagnosis: Secondary ICD Code: F19.10 - Other psychoactive substance abuse, uncomplicated Status: Acute Pt Condition on Discharge: Stable Discharge Disposition: Discharge Home Discharge Instructions Diet Instructions: As Tolerated, No Restrictions Activities you can perform: Regular-No Restrictions Scheduled Appointment: Brien Sandhu Discharge Time > 30 minutes Mental Status Examination Appearance: Appropriate Consciousness: Alert Orientation: x4 Motor Activity: Normal gait, Other (no motoric abnormalities noted) Speech: Unremarkable Language: Adequate Fund of Knowledge: Adequate Attention and Concentration: Adequate Memory: Unremarkable Mood: Sad (improving) Affect: Appropriate Thought Process & Associations: Intact, Logical, Linear Thought Content: Appropriate Hallucination Type: None Delusion Type: None Suicidal Ideation: No Suicidal Plan: No Suicidal Intention: No Homicidal Ideation: No Homicidal Plan: No Homicidal Intention: No Insight: Fair Judgment: Adequate (fair) Discharge/Advance Care Plan Health Problems: (1) Substance abuse (2) Severe major depression, single episode, without psychotic features Goals to promote your health * To prevent worsening of your condition and complications * To maintain your health at the optimal level Directions to meet your goals Take your medications as prescribed Follow your dietary instruction Follow activity as directed Keep your appointments as scheduled Take your immunizations and boosters as scheduled If your symptoms worsen call your PCP, if no PCP go to Urgent Care Center or Emergency Room For 02/04 questions related to your inpatient stay or results of tests pending at discharge, please contact Dr. Delbert Islas at Smoking is Dangerous to Your Health. Avoid second hand smoking Delbert Islas MD Sep 13, 2017 10:27
== END 2017-09-13 11:05 | disposition home or self-care (01) | DRG 885 ==
LOC: NEPJ 18:41 → NEDA 09-08 10:05 → H260 09-08 12:20
PROVIDERS: ADMIT Psychiatry & Neurology Psychiatry; ATTEND Psychiatry & Neurology Psychiatry
DX: F32.2 Major depressive disorder, single episode, severe without psychotic features (principal); R45.851 Suicidal ideations; F19.10 Other psychoactive substance abuse, uncomplicated; F41.9 Anxiety disorder, unspecified; M17.0 Bilateral primary osteoarthritis of knee; Z59.0 Homelessness; Z91.5 Personal history of self-harm
CPT/HCPCS: 80048; 80053; 80061; 80307; 83036; 84443; 85025; 99285; Q0163

== ENCOUNTER 2017-10-08 03:18 | Emergency (ER) | payer SELFPAY ==
[~2017-10-08] VITALS: Ht 180.3 cm; Wt 109.0 kg
[~2017-10-08 03:18] MED LIST changes: -BACT800T5 PO; +BUPR150CR PO; -CEPH-460 PO; +NEUR300C PO
[2017-10-08 03:24] VITALS: BP 121/81; PULSE 65; RESP 20; TEMP 97.9; O2SAT 98
[2017-10-08 03:30] VITALS: RESP 20; O2SAT 97
[2017-10-08] MEDS ORDERED: SODIUM CHLORIDE 0.9% FLUSH 10 ML FLUSH IV FLUSH PRN (03:30)
--- NOTE | 2017-10-08 03:53 | PD ---
HPI Chief Complaint: Abdominal Pain Time Seen by Provider: 03:50 Travel History International Travel<30 days: No Contact w/Intl Traveler<30days: No Traveled to known affect area: No History of Present Illness HPI 56-year-old male patient with history of kidney stones, presents to the ER today with sudden onset of right flank pains this evening, and states that the pain has moved down to his right lower quadrant and down to the right groin area now. He states is currently a 8 out of 10. He denies any vomiting, fevers , or any other symptoms. 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 2 YRS AGO) Other Surgery: Yes Social History Alcohol Use: Yes (sober x 2 years, started back 06/2017) Tobacco Use: No Substance Use: Yes (regular use of k-2, MARIJUANA) Allergies-Medications (Allergen,Severity, Reaction): Coded Allergies: No Known Allergies (Unverified Allergy, Unknown, 10/08/17) Reported Meds & Prescriptions Reported Meds & Active Scripts Active Neurontin (Gabapentin) 300 Mg Cap 300 Mg PO TID Wellbutrin SR 12 HR (Bupropion HCl) 150 Mg Tab 150 Mg PO BID@0900,1500 Review of Systems Except as stated in HPI: all other systems reviewed are Neg Physical Exam Narrative GENERAL: Well-developed middle age white male patient currently in mild distress. Awake and oriented 3. SKIN: Focused skin assessment warm/mildly diaphoretic. HEAD: Atraumatic. Normocephalic. EYES: Pupils equal and round. No scleral icterus. No injection or drainage. ENT: No nasal bleeding or discharge. Mucous membranes pink and moist. NECK: Trachea midline. No JVD. CARDIOVASCULAR: Regular rate and rhythm. No murmur appreciated. RESPIRATORY: No accessory muscle use. Clear to auscultation. Breath sounds equal bilaterally. GASTROINTESTINAL: Abdomen soft, right sided abdominal tenderness without guarding or rebound, nondistended. Hepatic and splenic margins not palpable. BACK: Right CVA tenderness. No rash. No point tenderness on palpation of the spine. MUSCULOSKELETAL: No obvious deformities. No clubbing. No cyanosis. No edema. NEUROLOGICAL: Awake and alert. No obvious cranial nerve deficits. Motor grossly within normal limits. Normal speech. PSYCHIATRIC: Appropriate mood and affect; insight and judgment normal. Data Data Last Documented VS Vital Signs Date Time Temp Pulse Resp B/P (MAP) Pulse Ox O2 Delivery O2 Flow Rate FiO2 10/08/17 03:30 20 97 Room Air 10/08/17 03:24 97.9 65 121/81 (94) Orders Orders Complete Blood Count With Diff (10/08/17 03:29) Comprehensive Metabolic Panel (10/08/17 03:29) Lipase (10/08/17 03:29) Urinalysis - C+S If Indicated (10/08/17 03:29) Iv Access Insert/Monitor (10/08/17 03:29) Ecg Monitoring (10/08/17 03:29) Oximetry (10/08/17 03:29) Sodium Chloride 0.9% Flush (Ns Flush) (10/08/17 03:30) Ketorolac Inj (Toradol Inj) (10/08/17 04:00) Sodium Chlor 0.9% 1000 Ml Inj (Ns 1000 M (10/08/17 04:00) Ct Abd/Pel W/O Iv Contrast (10/08/17 03:50) Ed Discharge Order (10/08/17 05:44) Labs Laboratory Tests Test 10/08/17 03:40 White Blood Count 10.5 TH/MM3 Red Blood Count 4.72 MIL/MM3 Hemoglobin 14.8 GM/DL Hematocrit 40.2 % Mean Corpuscular Volume 85.2 FL Mean Corpuscular Hemoglobin 31.4 PG Mean Corpuscular Hemoglobin Concent 36.9 % Red Cell Distribution Width 13.6 % Platelet Count 231 TH/MM3 Mean Platelet Volume 8.8 FL Neutrophils (%) (Auto) 72.8 % Lymphocytes (%) (Auto) 16.8 % Monocytes (%) (Auto) 6.6 % Eosinophils (%) (Auto) 3.5 % Basophils (%) (Auto) 0.3 % Neutrophils # (Auto) 7.6 TH/MM3 Lymphocytes # (Auto) 1.8 TH/MM3 Monocytes # (Auto) 0.7 TH/MM3 Eosinophils # (Auto) 0.4 TH/MM3 Basophils # (Auto) 0.0 TH/MM3 CBC Comment AUTO DIFF Differential Comment AUTO DIFF CONFIRMED Platelet Estimate NORMAL Platelet Morphology Comment NORMAL Red Cell Morphology Comment NORMAL Blood Urea Nitrogen 15 MG/DL Creatinine 1.38 MG/DL Random Glucose 110 MG/DL Total Protein 7.5 GM/DL Albumin 3.9 GM/DL Calcium Level 9.7 MG/DL Alkaline Phosphatase 96 U/L Aspartate Amino Transf (AST/SGOT) 12 U/L Alanine Aminotransferase (ALT/SGPT) 19 U/L Total Bilirubin 0.8 MG/DL Sodium Level 140 MEQ/L Potassium Level 3.8 MEQ/L Chloride Level 107 MEQ/L Carbon Dioxide Level 24.6 MEQ/L Anion Gap 8 MEQ/L Estimat Glomerular Filtration Rate 54 ML/MIN Lipase 65 U/L [facility] Medical Decision Making Medical Screen Exam Complete: Yes Emergency Medical Condition: Yes Medical Record Reviewed: Yes Interpretation(s) Laboratory Tests Test 10/08/17 03:40 Mean Corpuscular Hemoglobin Concent 36.9 % (32.0-36.0) Neutrophils (%) (Auto) 72.8 % (16.0-70.0) Creatinine 1.38 MG/DL (0.60-1.30) Random Glucose 110 MG/DL (74-106) Aspartate Amino Transf (AST/SGOT) 12 U/L (15-37) Estimat Glomerular Filtration Rate 54 ML/MIN (>89) Lipase 65 U/L (73-393) Last 24 hours Impressions Abdomen/Pelvis CT 10/08/17 0350 Signed Impressions: Service Date/Time: Sunday, October 08, 2017 04:17 - CONCLUSION: 1. 3 mm calculus at right ureterovesical junction resulting in right-sided obstructive uropathy and mild right hydronephrosis. Jesse Brown MD Differential Diagnosis Renal colic versus pyelonephritis versus appendicitis versus muscular skeletal Narrative Course 3 mm stone identified the cause of symptoms. Lab work is unremarkable otherwise. Patient states he had just urinated and is not able to urinate right now. He was given pain medications in the ER and on reevaluation at 5:45 AM appears more comfortable. Vital signs are stable in the ER. My plan would be to release him with symptomatic treatment for pain and follow-up with urology. Return for worsening in pain or new symptoms as needed. The plan has been discussed with him and he states understanding. Diagnosis Primary Impression: Renal colic on right side Med/Other Pt SpecificInfo: Prescription(s) given Scripts Oxycodone-Acetaminophen (Percocet) 5-325 mg Tab 1 TAB PO Q6H Y for PAIN, #10 TAB 0 Refills Prov: Osmel Zarate MD 10/08/17 Alfuzosin ER 24 HR (Uroxatral ER 24 HR) 10 Mg Tab 10 MG PO DAILY for BPH, #7 TAB 0 Refills Prov: Osmel Zarate MD 10/08/17 Ibuprofen (Ibuprofen) 600 Mg Tab 600 MG PO Q6H Y for Pain/Inflammation, #30 TAB 0 Refills Prov: Osmel Zarate MD 10/08/17 Disposition: 01 DISCHARGE HOME Condition: Stable Osmel Zarate MD Oct 08, 2017 03:53
[2017-10-08] MEDS ORDERED: KETOROLAC TROMETHAMINE 30 MG/ML (IVP) VIAL IV PUSH ONE (04:00)
[2017-10-08] MEDS ORDERED: SODIUM CHLOR 0.9% 1000 ML INJ 1,000 ML IV ONE (04:00)
[2017-10-08 04:01] LABS: AUTOMATED NEUTROPHIL # 7.6 TH/MM3 (1.8-7.7); BASOPHIL % 0.3 % (0.0-2.0); EOSINOPHIL # 0.4 TH/MM3 (0-0.4); EOSINOPHIL % 3.5 % (0.0-4.0); HEMATOCRIT 40.2 % (39.0-51.0); HEMOGLOBIN 14.8 GM/DL (13.0-17.0); LYMPH % 16.8 % (9.0-44.0); LYMPHOCYTE # 1.8 TH/MM3 (1.0-4.8); MEAN CELL VOLUME 85.2 FL (80.0-100.0); MEAN CORPUSCULAR HEMOGLOBIN 31.4 PG (27.0-34.0); MEAN PLATELET VOLUME 8.8 FL (7.0-11.0); MONO % 6.6 % (0.0-8.0); MONOCYTE # 0.7 TH/MM3 (0-0.9); NEUT % 72.8 % (16.0-70.0); PLATELET COUNT 231 TH/MM3 (150-450); RED BLOOD COUNT 4.72 MIL/MM3 (4.50-5.90); RED CELL DISTRIBUTION WIDTH 13.6 % (11.6-17.2); WHITE BLOOD COUNT 10.5 TH/MM3 (4.0-11.0)
[2017-10-08 04:03] LABS: MEAN CORPUSCULAR HGB CONC 36.9 % (32.0-36.0)
[2017-10-08 04:12] LABS: ALBUMIN 3.9 GM/DL (3.4-5.0); ALT (GPT) 19 U/L (12-78); AST (GOT) 12 U/L (15-37); BICARBONATE 24.6 MEQ/L (21.0-32.0); BLOOD UREA NITROGEN 15 MG/DL (7-18); CALCIUM 9.7 MG/DL (8.5-10.1); CHLORIDE 107 MEQ/L (98-107); CREATININE 1.38 MG/DL (0.60-1.30); GLOMERULAR FILTRATION RATE 54 ML/MIN (>89); GLUCOSE,RANDOM 110 MG/DL (74-106); SODIUM (NA) 140 MEQ/L (136-145)
[2017-10-08 04:13] LABS: ALKALINE PHOSPHATASE 96 U/L (45-117); TOTAL BILIRUBIN ADULT 0.8 MG/DL (0.2-1.0); TOTAL PROTEIN 7.5 GM/DL (6.4-8.2)
--- NOTE | 2017-10-08 04:40 | RADRPT ---
EXAM DATE/TIME: 10/08/2017 04:17 [place] COMPARISON: No previous studies available for comparison. INDICATIONS : <<Right flank pain ORAL CONTRAST: No oral contrast ingested. RADIATION DOSE: <<13.54>> CTDIvol (mGy) MEDICAL HISTORY : Renal calculi. SURGICAL HISTORY : None. ENCOUNTER: Initial ACUITY: 1 day PAIN SCALE: 6/10 LOCATION: Right flank TECHNIQUE: Volumetric scanning of the abdomen and pelvis was performed. Using automated exposure control and ad justment of the mA and/or kV according to patient size, radiation dose was kept as low as reasonably achievable to obtain optimal diagnostic quality images. DICOM format image data is available electro nically for review and comparison. FINDINGS: There is mild right-sided hydronephrosis and a 3 mm calculus at the right ureterovesical junction tabitha racteristic of obstructive uropathy. Lung bases are clear. No acute findings in the liver, spleen, adrenals, left kidney or pancreas. No c alcified gallstones. No bowel obstruction, free air or free fluid. CONCLUSION: 1. 3 mm calculus at right ureterovesical junction resulting in right-sided obstructive uropathy and m ild right hydronephrosis. Jesse Brown MD on October 08, 2017 at 4:36 Board Certified Radiologist. This report was verified electronically.
[2017-10-08] MEDS ORDERED: IBUP-232 PO (05:48)
[2017-10-08] MEDS ORDERED: ALFU1TAB14 PO (05:48)
[2017-10-08] MEDS ORDERED: PERC5TAB12 PO (05:48)
== END 2017-10-08 06:31 | disposition home or self-care (01) ==
LOC: NEPE 03:18
DX: N23 Unspecified renal colic (principal); F32.9 Major depressive disorder, single episode, unspecified
CPT/HCPCS: 74176; 80053; 83690; 85025; 96361; 96374; 99285; J1885; J7030

== ENCOUNTER 2017-12-13 20:51 | Emergency (ER) | payer OTHER ==
[~2017-12-13] VITALS: Ht 182.9 cm; Wt 90.0 kg
[~2017-12-13 20:51] MED LIST changes: +ALFU1TAB14 PO; +IBUP-232 PO; +PERC5TAB12 PO
[2017-12-13 21:34] VITALS: BP 131/73; PULSE 86; RESP 16; TEMP 98.8; O2SAT 96
[2017-12-13 22:00] LABS: BASOPHIL % 0.4 % (0.0-2.0); EOSINOPHIL # 0.4 TH/MM3 (0-0.4); EOSINOPHIL % 4.3 % (0.0-4.0); HEMATOCRIT 40.4 % (39.0-51.0); LYMPH % 21.3 % (9.0-44.0); LYMPHOCYTE # 2.2 TH/MM3 (1.0-4.8); MEAN CELL VOLUME 85.8 FL (80.0-100.0); MEAN CORPUSCULAR HEMOGLOBIN 29.8 PG (27.0-34.0); MEAN CORPUSCULAR HGB CONC 34.7 % (32.0-36.0); MEAN PLATELET VOLUME 9.1 FL (7.0-11.0); MONO % 5.2 % (0.0-8.0); MONOCYTE # 0.5 TH/MM3 (0-0.9); NEUT % 68.8 % (16.0-70.0); PLATELET COUNT 274 TH/MM3 (150-450); RED CELL DISTRIBUTION WIDTH 13.7 % (11.6-17.2); WHITE BLOOD COUNT 10.2 TH/MM3 (4.0-11.0)
[2017-12-13 23:50] VITALS: BP 93/50; PULSE 84; RESP 17; TEMP 98.7; O2SAT 96
--- NOTE | 2017-12-13 23:50 | PD ---
HPI Chief Complaint: Psychiatric Symptoms Time Seen by Provider: 21:50 Travel History International Travel<30 days: No Contact w/Intl Traveler<30days: No Traveled to known affect area: No History of Present Illness HPI 57-year-old male presents emergency department under Mai act for psychiatric evaluation. Patient has been increasingly depressed. States that he "no longer wants to be here." Does not disclose the plan with me but tells me he has one. Patient states he i does not take any medication. He denies any acute medical needs at this time. PFSH Past Medical History Hx Anticoagulant Therapy: No Arthritis: Yes (OSTEOARTHRITIS IN BOTH KNEES) Anxiety: Yes Depression: Yes Cardiovascular Problems: No Chemotherapy: No Cerebrovascular Accident: No Diabetes: No Diminished Hearing: No Hypertension: No Kidney Stones: Yes Respiratory: No Seizures: No Past Surgical History Hysterectomy: No Joint Replacement: Yes (ROTATOR CUFF RECONSTRUCTION APPX. 2 YRS AGO) Other Surgery: Yes Social History Alcohol Use: Yes (sober x 2 years, started back 06/2017) Tobacco Use: No Substance Use: Yes (regular use of k-2, MARIJUANA) Allergies-Medications (Allergen,Severity, Reaction): Coded Allergies: No Known Allergies (Unverified Allergy, Unknown, 10/08/17) Reported Meds & Prescriptions Reported Meds & Active Scripts Active Percocet (Oxycodone-Acetaminophen) 5-325 mg Tab 1 Tab PO Q6H PRN Uroxatral ER 24 HR (Alfuzosin ER 24 HR) 10 Mg Tab 10 Mg PO DAILY Ibuprofen 600 Mg Tab 600 Mg PO Q6H PRN Neurontin (Gabapentin) 300 Mg Cap 300 Mg PO TID Wellbutrin SR 12 HR (Bupropion HCl) 150 Mg Tab 150 Mg PO BID@0900,1500 Review of Systems Except as stated in HPI: all other systems reviewed are Neg Physical Exam Narrative GENERAL: Well-nourished male patient, sleeping when I walked into the room. Arouses to awake and speaks clearly to me. SKIN: Focused skin assessment warm/dry. HEAD: Atraumatic. Normocephalic. EYES: Pupils equal and round. No scleral icterus. No injection or drainage. ENT: No nasal bleeding or discharge. Mucous membranes pink and moist. NECK: Trachea midline. No JVD. CARDIOVASCULAR: Regular rate and rhythm. No murmur appreciated. RESPIRATORY: No accessory muscle use. Clear to auscultation. Breath sounds equal bilaterally. GASTROINTESTINAL: Abdomen soft, non-tender, nondistended. Hepatic and splenic margins not palpable. MUSCULOSKELETAL: No obvious deformities. No clubbing. No cyanosis. No edema. NEUROLOGICAL: Awake and alert. No obvious cranial nerve deficits. Motor grossly within normal limits. Normal speech. Data Data Last Documented VS Vital Signs Date Time Temp Pulse Resp B/P (MAP) Pulse Ox O2 Delivery O2 Flow Rate FiO2 12/13/17 23:50 98.7 84 17 93/50 (64) 96 Room Air Orders Orders Complete Blood Count With Diff (12/13/17 21:22) Comprehensive Metabolic Panel (12/13/17 21:22) Psych Screen (12/13/17 21:22) Drug Screen, Random Urine (12/13/17 21:22) Alcohol (Ethanol) (12/13/17 21:22) Salicylates (Aspirin) (12/13/17 21:22) Tylenol (Acetaminophen) (12/13/17 21:22) Diet Regular Basic (12/14/17 Breakfast) Labs Laboratory Tests Test 12/13/17 21:40 White Blood Count 10.2 TH/MM3 Red Blood Count 4.70 MIL/MM3 Hemoglobin 14.0 GM/DL Hematocrit 40.4 % Mean Corpuscular Volume 85.8 FL Mean Corpuscular Hemoglobin 29.8 PG Mean Corpuscular Hemoglobin Concent 34.7 % Red Cell Distribution Width 13.7 % Platelet Count 274 TH/MM3 Mean Platelet Volume 9.1 FL Neutrophils (%) (Auto) 68.8 % Lymphocytes (%) (Auto) 21.3 % Monocytes (%) (Auto) 5.2 % Eosinophils (%) (Auto) 4.3 % Basophils (%) (Auto) 0.4 % Neutrophils # (Auto) 7.0 TH/MM3 Lymphocytes # (Auto) 2.2 TH/MM3 Monocytes # (Auto) 0.5 TH/MM3 Eosinophils # (Auto) 0.4 TH/MM3 Basophils # (Auto) 0.0 TH/MM3 CBC Comment DIFF FINAL Differential Comment Blood Urea Nitrogen 20 MG/DL Creatinine 1.25 MG/DL Random Glucose 119 MG/DL Total Protein 7.2 GM/DL Albumin 3.6 GM/DL Calcium Level 9.7 MG/DL Alkaline Phosphatase 102 U/L Aspartate Amino Transf (AST/SGOT) 17 U/L Alanine Aminotransferase (ALT/SGPT) 39 U/L Total Bilirubin 0.4 MG/DL Sodium Level 141 MEQ/L Potassium Level 3.8 MEQ/L Chloride Level 109 MEQ/L Carbon Dioxide Level 21.8 MEQ/L Anion Gap 10 MEQ/L Estimat Glomerular Filtration Rate 60 ML/MIN Salicylates Level 1.9 MG/DL Acetaminophen Level LESS THAN 2.0 MCG/ML Ethyl Alcohol Level LESS THAN 3 MG/DL MDM Medical Decision Making Medical Screen Exam Complete: Yes Emergency Medical Condition: Yes Medical Record Reviewed: Yes Differential Diagnosis Mood disorder versus personality disorder versus adjustment reaction disorder Narrative Course 57-year-old male presents emergency department under a Mai act for psychiatric evaluation. Patient appears without distress. Vital signs are stable. Lab work is reviewed and without acute concern. Patient is medically cleared to undergo psychiatric screening for further evaluation and disposition. Mental health screening discussed with the patient. Psychiatric screen ordered. Diagnosis Primary Impression: Adjustment reaction Qualified Codes: F43.20 - Adjustment disorder, unspecified Condition: Stable Mehnaz Webber Dec 13, 2017 23:50
[2017-12-14 01:55] LABS: ACETAMINOPHEN LESS THAN 2.0 MCG/ML (10.0-30.0); ALBUMIN 3.6 GM/DL (3.4-5.0); ALT (GPT) 39 U/L (12-78); AST (GOT) 17 U/L (15-37); BICARBONATE 21.8 MEQ/L (21.0-32.0); BLOOD UREA NITROGEN 20 MG/DL (7-18); CALCIUM 9.7 MG/DL (8.5-10.1); CHLORIDE 109 MEQ/L (98-107); CREATININE 1.25 MG/DL (0.60-1.30); GLOMERULAR FILTRATION RATE 60 ML/MIN (>89); GLUCOSE,RANDOM 119 MG/DL (74-106); SODIUM (NA) 141 MEQ/L (136-145)
[2017-12-14 01:57] LABS: ALKALINE PHOSPHATASE 102 U/L (45-117); TOTAL BILIRUBIN ADULT 0.4 MG/DL (0.2-1.0); TOTAL PROTEIN 7.2 GM/DL (6.4-8.2)
[2017-12-14 04:35] VITALS: BP 117/61; PULSE 60; RESP 17; TEMP 98.2; O2SAT 96
[2017-12-14 10:26] VITALS: BP 121/66; PULSE 65; RESP 16; TEMP 98.2; O2SAT 98
[2017-12-14 18:17] VITALS: BP 118/76; PULSE 55; RESP 16; TEMP 98.1; O2SAT 98
[2017-12-14 21:37] VITALS: BP 103/56; PULSE 61; RESP 18; TEMP 98.5; O2SAT 95
--- NOTE | 2017-12-14 22:31 | PD ---
Physical Exam Date Seen by Provider: Dec 14, 2017 Time Seen by Provider: 22:30 Narrative For full history and physical examination please see previous notes. Data Data Last Documented VS Vital Signs Date Time Temp Pulse Resp B/P (MAP) Pulse Ox O2 Delivery O2 Flow Rate FiO2 12/14/17 22:14 12/14/17 21:37 98.5 61 18 95 Room Air Orders Orders Complete Blood Count With Diff (12/13/17 21:22) Comprehensive Metabolic Panel (12/13/17 21:22) Psych Screen (12/13/17 21:22) Drug Screen, Random Urine (12/13/17 21:22) Alcohol (Ethanol) (12/13/17 21:22) Salicylates (Aspirin) (12/13/17 21:22) Tylenol (Acetaminophen) (12/13/17 21:22) Diet Regular Basic (12/14/17 Breakfast) Diet Regular Basic (12/14/17 Lunch) Diet Regular Basic (12/14/17 Dinner) Ed Discharge Order (12/14/17 22:30) Labs Laboratory Tests Test 12/13/17 21:40 12/14/17 07:55 White Blood Count 10.2 TH/MM3 Red Blood Count 4.70 MIL/MM3 Hemoglobin 14.0 GM/DL Hematocrit 40.4 % Mean Corpuscular Volume 85.8 FL Mean Corpuscular Hemoglobin 29.8 PG Mean Corpuscular Hemoglobin Concent 34.7 % Red Cell Distribution Width 13.7 % Platelet Count 274 TH/MM3 Mean Platelet Volume 9.1 FL Neutrophils (%) (Auto) 68.8 % Lymphocytes (%) (Auto) 21.3 % Monocytes (%) (Auto) 5.2 % Eosinophils (%) (Auto) 4.3 % Basophils (%) (Auto) 0.4 % Neutrophils # (Auto) 7.0 TH/MM3 Lymphocytes # (Auto) 2.2 TH/MM3 Monocytes # (Auto) 0.5 TH/MM3 Eosinophils # (Auto) 0.4 TH/MM3 Basophils # (Auto) 0.0 TH/MM3 CBC Comment DIFF FINAL Differential Comment Blood Urea Nitrogen 20 MG/DL Creatinine 1.25 MG/DL Random Glucose 119 MG/DL Total Protein 7.2 GM/DL Albumin 3.6 GM/DL Calcium Level 9.7 MG/DL Alkaline Phosphatase 102 U/L Aspartate Amino Transf (AST/SGOT) 17 U/L Alanine Aminotransferase (ALT/SGPT) 39 U/L Total Bilirubin 0.4 MG/DL Sodium Level 141 MEQ/L Potassium Level 3.8 MEQ/L Chloride Level 109 MEQ/L Carbon Dioxide Level 21.8 MEQ/L Anion Gap 10 MEQ/L Estimat Glomerular Filtration Rate 60 ML/MIN Salicylates Level 1.9 MG/DL Acetaminophen Level LESS THAN 2.0 MCG/ML Ethyl Alcohol Level LESS THAN 3 MG/DL Urine Opiates Screen NEG Urine Barbiturates Screen NEG Urine Amphetamines Screen NEG Urine Benzodiazepines Screen NEG Urine Cocaine Screen NEG Urine Cannabinoids Screen POS MDM Medical Record Reviewed: Yes Supervised Visit with RAY: No Narrative Course Patient is a 57-year-old male that presented to emergency department for psychiatric evaluation. He was seen and evaluated, medically cleared. He will now be transferred to [facility]. Diagnosis Primary Impression: Adjustment reaction Qualified Codes: F43.20 - Adjustment disorder, unspecified Patient Instructions: General Instructions Departure Forms: Tests/Procedures Disposition: 65 DISC TO PSYCH CARE FACILITY Condition: Stable [facility] Dec 14, 2017 22:31
== END 2017-12-14 23:07 ==
LOC: NEPJ 20:51
DX: F43.23 Adjustment disorder with mixed anxiety and depressed mood (principal); Z87.442 Personal history of urinary calculi; M17.0 Bilateral primary osteoarthritis of knee; F12.90 Cannabis use, unspecified, uncomplicated
CPT/HCPCS: 80053; 80307; 85025; 99283

== ENCOUNTER 2018-03-21 11:52 | Inpatient (IN) ==
[2018-03-21] MEDS ORDERED: Sod Chloride 0.9% Inj 1,000 ML IV.SIG ONE (12:02)
[2018-03-21] MEDS ORDERED: Morphine Sulfate Inj 2 MG/ML Vial IV.PUSH ONE (12:02)
[2018-03-21] MEDS ORDERED: Morphine Inj 4 MG/ML Vial IV.PUSH ONE (12:15)
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
[2018-03-21] MEDS ORDERED: HYDROmorphone PF Inj 1 MG/ML Ampul IV.PUSH ONE (14:18)
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
[2018-03-21 14:50] LABS: Baso % (Auto) 0.1 % (0.0-2.0); Eos # (Auto) 0.1 th/mm3 (0.0-0.4); Eos % (Auto) 0.4 % (0.0-4.0); Hematocrit 37.8 % (39.0-51.0); Hemoglobin 12.6 gm/dL (13.0-17.0); Lymph # (Auto) 1.7 th/mm3 (1.0-4.8); Lymph % (Auto) 6.7 % (9.0-44.0); Mean Corpuscular HGB Conc 33.3 % (32.0-36.0); Mean Corpuscular Hemoglobin 29.2 pg (27.0-34.0); Mean Corpuscular Volume 87.5 fL (80.0-100.0); Mono # (Auto) 1.2 th/mm3 (0.0-0.9); Mono % (Auto) 4.7 % (0.0-8.0); Neut # (Auto) 22.9 th/mm3 (1.8-7.7); Neut % (Auto) 88.1 % (16.0-70.0); Platelet Count 277 th/mm3 (150-450); Red Blood Count 4.31 mil/mm3 (4.50-5.90); Red Cell Distribution Width 13.9 % (11.6-17.2)
[2018-03-21 14:59] LABS: INR 1.1 Ratio; Prothrombin Time 11.1 sec (9.8-11.6)
[2018-03-21] MEDS ORDERED: Sodium Chlor 0.9% Inj 250 ML IV.SIG SCH (15:00)
[2018-03-21] MEDS ORDERED: fentaNYL Citrate Inj 250 MCG/5 ML Ampul ONE (15:06)
[2018-03-21 15:07] LABS: Alanine Aminotransferase 24 U/L (12-78); Albumin 3.5 g/dL (3.4-5.0); Anion Gap 9 meq/L (5-15); Aspartate Aminotransferase 26 U/L (15-37); Blood Urea Nitrogen 16 mg/dL (7-18); Carbon Dioxide 24.4 meq/L (21.0-32.0); Chloride 108 meq/L (98-107); Glomerular Filtration Rate 68 mL/min (>89); Glucose,Random 121 mg/dL (74-106); Lipase 80 U/L (73-393); Potassium 3.6 meq/L (3.5-5.1); Sodium 141 meq/L (136-145)
[2018-03-21 15:09] LABS: Alkaline Phosphatase 73 U/L (45-117); Total Protein 6.1 g/dL (6.4-8.2)
[2018-03-21] MEDS ORDERED: Gelatin 12 MM/7 MM Topical Foam I-ARTERIAL ONE (16:00)
[2018-03-21] MEDS ORDERED: Post-op Orders (for Pharmacy) OTHER STA (18:09)
[2018-03-21] MEDS ORDERED: Bisacodyl 10 MG Supp RECTAL PRN (18:09)
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
[2018-03-21] MEDS: HYDROmorphone PF Inj 2 MG/ML Vial IV.PUSH PRN (19:11)
[2018-03-21 21:29] LABS: Hematocrit 38.9 % (39.0-51.0); Hemoglobin 12.8 gm/dL (13.0-17.0)
[2018-03-21] MEDS: Senna/Docusate Sodium 8.6/50 MG Tablet PO SCH (22:26)
[2018-03-22] MEDS: HYDROmorphone PF Inj 2 MG/ML Vial IV.PUSH PRN ×5 (02:46→21:35)
[2018-03-22 04:06] LABS: Hematocrit 39.3 % (39.0-51.0); Mean Corpuscular HGB Conc 33.1 % (32.0-36.0); Mean Corpuscular Hemoglobin 29.6 pg (27.0-34.0); Mean Corpuscular Volume 89.4 fL (80.0-100.0); Mean Platelet Volume 10.4 fL (7.0-11.0); Platelet Count 215 th/mm3 (150-450); Red Cell Distribution Width 14.2 % (11.6-17.2)
[2018-03-22 04:14] LABS: Carbon Dioxide 22.1 meq/L (21.0-32.0); Potassium 4.5 meq/L (3.5-5.1)
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
[2018-03-22 15:35] LABS: Hemoglobin 10.8 gm/dL (13.0-17.0)
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
[2018-03-22] MEDS: Senna/Docusate Sodium 8.6/50 MG Tablet PO SCH ×2 (18:26→20:02)
[2018-03-22 21:58] LABS: Hematocrit 31.5 % (39.0-51.0); Hemoglobin 10.7 gm/dL (13.0-17.0)
[2018-03-23] MEDS: HYDROmorphone PF Inj 2 MG/ML Vial IV.PUSH PRN ×3 (01:12→07:56)
[2018-03-23 05:10] LABS: Baso # (Auto) 0.1 th/mm3 (0.0-0.2); Baso % (Auto) 0.2 % (0.0-2.0); Eos % (Auto) 0.1 % (0.0-4.0); Hematocrit 30.8 % (39.0-51.0); Hemoglobin 10.4 gm/dL (13.0-17.0); Lymph # (Auto) 1.6 th/mm3 (1.0-4.8); Lymph % (Auto) 6.8 % (9.0-44.0); Mean Corpuscular HGB Conc 33.8 % (32.0-36.0); Mean Corpuscular Hemoglobin 29.7 pg (27.0-34.0); Mean Platelet Volume 9.9 fL (7.0-11.0); Mono # (Auto) 1.5 th/mm3 (0.0-0.9); Mono % (Auto) 6.4 % (0.0-8.0); Neut # (Auto) 20.8 th/mm3 (1.8-7.7); Neut % (Auto) 86.5 % (16.0-70.0); Platelet Count 182 th/mm3 (150-450); Red Cell Distribution Width 14.4 % (11.6-17.2)
[2018-03-23 06:16] LABS: Calcium 9.1 mg/dL (8.5-10.1); Carbon Dioxide 22.1 meq/L (21.0-32.0); Potassium 3.9 meq/L (3.5-5.1)
[2018-03-23] MEDS: Senna/Docusate Sodium 8.6/50 MG Tablet PO SCH ×2 (08:27→21:04)
[2018-03-23] MEDS ORDERED: Naloxone Inj 0.4 MG/ML Vial IV.PUSH PRN (10:18)
[2018-03-23] MEDS: Sod Chloride 0.9% Inj 1,000 ML IV.CONT SCH (11:14)
[2018-03-23] MEDS: HYDROmorphone PCA Inj 6 MG/30 ML PCA.VIAL PCA PRN ×2 (11:15→16:49)
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
[2018-03-23] MEDS: Heparin - SQ 10,000 UNITS/ML Vial SQ SCH ×2 (14:32→21:04)
[2018-03-24] MEDS: HYDROmorphone PCA Inj 6 MG/30 ML PCA.VIAL PCA PRN ×4 (01:13→19:53)
[2018-03-24] MEDS: Heparin - SQ 10,000 UNITS/ML Vial SQ SCH ×3 (05:11→21:39)
[2018-03-24 07:28] LABS: Baso % (Auto) 0.1 % (0.0-2.0); Eos # (Auto) 0.2 th/mm3 (0.0-0.4); Eos % (Auto) 0.7 % (0.0-4.0); Hematocrit 27.8 % (39.0-51.0); Hemoglobin 9.5 gm/dL (13.0-17.0); Lymph # (Auto) 1.3 th/mm3 (1.0-4.8); Mean Corpuscular HGB Conc 34.2 % (32.0-36.0); Mean Corpuscular Volume 87.9 fL (80.0-100.0); Mean Platelet Volume 9.6 fL (7.0-11.0); Mono % (Auto) 7.7 % (0.0-8.0); Neut # (Auto) 22.6 th/mm3 (1.8-7.7); Neut % (Auto) 86.5 % (16.0-70.0); Platelet Count 190 th/mm3 (150-450); Red Blood Count 3.16 mil/mm3 (4.50-5.90); Red Cell Distribution Width 13.8 % (11.6-17.2); White Blood Count 26.1 th/mm3 (4.0-11.0)
[2018-03-24] MEDS: Senna/Docusate Sodium 8.6/50 MG Tablet PO SCH ×4 (07:43→20:33)
[2018-03-24 07:51] LABS: Anion Gap 9 meq/L (5-15); Blood Urea Nitrogen 8 mg/dL (7-18); Calcium 9.5 mg/dL (8.5-10.1); Carbon Dioxide 25.2 meq/L (21.0-32.0); Chloride 101 meq/L (98-107); Glomerular Filtration Rate Greater Than 89 mL/min (>89); Glucose,Random 94 mg/dL (74-106); Potassium 3.8 meq/L (3.5-5.1); Sodium 135 meq/L (136-145)
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
[2018-03-24] MEDS: Sod Chloride 0.9% Inj 1,000 ML IV.CONT SCH (15:03)
[2018-03-25] MEDS: Sod Chloride 0.9% Inj 1,000 ML IV.CONT SCH (04:12)
[2018-03-25] MEDS: Heparin - SQ 10,000 UNITS/ML Vial SQ SCH ×4 (05:27→23:45)
[2018-03-25] MEDS: HYDROmorphone PCA Inj 6 MG/30 ML PCA.VIAL PCA PRN ×2 (09:10→19:35)
[2018-03-25] MEDS: Senna/Docusate Sodium 8.6/50 MG Tablet PO SCH ×2 (09:19→20:32)
[2018-03-25 10:48] LABS: Baso % (Auto) 0.1 % (0.0-2.0); Eos # (Auto) 0.5 th/mm3 (0.0-0.4); Eos % (Auto) 2.2 % (0.0-4.0); Hemoglobin 9.2 gm/dL (13.0-17.0); Lymph # (Auto) 0.9 th/mm3 (1.0-4.8); Lymph % (Auto) 4.4 % (9.0-44.0); Mean Corpuscular HGB Conc 33.9 % (32.0-36.0); Mean Corpuscular Hemoglobin 29.9 pg (27.0-34.0); Mean Corpuscular Volume 88.3 fL (80.0-100.0); Mean Platelet Volume 9.3 fL (7.0-11.0); Mono # (Auto) 1.5 th/mm3 (0.0-0.9); Mono % (Auto) 7.1 % (0.0-8.0); Neut # (Auto) 18.4 th/mm3 (1.8-7.7); Neut % (Auto) 86.2 % (16.0-70.0); Platelet Count 261 th/mm3 (150-450); Red Blood Count 3.06 mil/mm3 (4.50-5.90); Red Cell Distribution Width 13.7 % (11.6-17.2); White Blood Count 21.4 th/mm3 (4.0-11.0)
[2018-03-25 11:01] LABS: Anion Gap 9 meq/L (5-15); Blood Urea Nitrogen 7 mg/dL (7-18); Calcium 9.4 mg/dL (8.5-10.1); Carbon Dioxide 26.7 meq/L (21.0-32.0); Chloride 100 meq/L (98-107); Glomerular Filtration Rate Greater Than 89 mL/min (>89); Glucose,Random 78 mg/dL (74-106); Potassium 3.4 meq/L (3.5-5.1); Sodium 136 meq/L (136-145)
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
[2018-03-25 11:41] LABS: Eosinophils 2 % (0-4); Lymphocytes 6 % (9-44); Monocytes 6 % (0-8); Tallied Nucleated RBC 1 (0-0)
[2018-03-25 11:42] LABS: Platelet Estimate Normal (Normal); Platelet Morphology Normal (Normal); RBC Morphology Normal (Normal)
--- NOTE | 2018-03-25 14:24 | CT ---
EXAM DATE: 03/25/2018 1:47 PM EDT AGE/SEX: 57 years / Male INDICATIONS: Follow up. Splenic laceration. CLINICAL DATA: This is the patient's subsequent encounter. Patient reports that signs and symptoms h ave been present for 4 - 6 days and indicates a pain score of 4/10. MEDICAL/SURGICAL HISTORY: Renal calculi. Umbilical hernia repair. ORAL CONTRAST: No oral contrast ingested. RADIATION DOSE: 10.96 CTDI (mGy) COMPARISON: [facility] [place], CT ABDOMEN & PELVIS W CONTRAST, 03/21/2018. . TECHNIQUE: Multiple contiguous axial images were obtained through the abdomen following bolus infusi on of 96 ml Omnipaque 350 (iohexol) nonionic water-soluble contrast as a single exam dose. No oral contrast ingested. Using automated exposure control and adjustment of the mA and/or kV according to patient size, radiation dose was kept as low as reasonably achievable to obtain optimal diagnostic qu ality images. DICOM format image data is available electronically for review and comparison. FINDINGS: The spleen measures almost 18.9 cm in craniocaudal dimension and demonstrates multiple sple tamera lacerations as identified previously and very swollen. There is no evidence for active extravasat ion. There are however areas of gas bubbles which have developed in the middle of the area of lacerat ion which now has the appearance of probably splenic infarction. Possibility of infectious etiologies such as abscess is difficult to exclude. There is a tiny bilateral pleural effusions and there is de nse consolidation in both lung bases worse on the left. There is mild superior endplate depression of T12 chronic in nature. The colon is distended measures almost 7.1 cm probably due to an ileus. Previ ously seen splenic lesion in the lower portion of the spleen is obscured by surrounding edema and lac eration. There is vicarious excretion within the gallbladder. There is also an area of diminished enh ancement involving the tail of the pancreas may be posttraumatic contusion and or possibly developing acute pancreatitis. There is slight fluid within the peritoneal cavity with haziness involving the m esenteric fat planes nonspecific. CONCLUSION: 1. The spleen appears more swollen as compared to the prior examination with increased edema within it and multiple areas of laceration some of the areas have the appearance of either necrotic infarcte d spleen and or possibly abscess formation with gas bubbles within them and clinical correlation is s uggested. 2. Bilateral pleural effusions and bibasilar consolidation. 3. Contusion versus early acute pancreatitis of the tail of the pancreas. Electronically signed by: Miguel Roberto MD 03/25/2018 2:23 PM EDT
[2018-03-25] MEDS: Pantoprazole Inj 40 MG Vial IV.PUSH SCH (18:08)
[2018-03-26] MEDS: Sod Chloride 0.9% Inj 1,000 ML IV.CONT SCH (04:23)
[2018-03-26] MEDS: HYDROmorphone PCA Inj 6 MG/30 ML PCA.VIAL PCA PRN ×2 (04:41→10:43)
[2018-03-26 04:50] LABS: Baso % (Auto) 0.1 % (0.0-2.0); Eos # (Auto) 0.6 th/mm3 (0.0-0.4); Eos % (Auto) 3.3 % (0.0-4.0); Hematocrit 25.8 % (39.0-51.0); Hemoglobin 8.8 gm/dL (13.0-17.0); Lymph # (Auto) 1.2 th/mm3 (1.0-4.8); Lymph % (Auto) 6.7 % (9.0-44.0); Mean Corpuscular HGB Conc 34.2 % (32.0-36.0); Mean Corpuscular Volume 87.8 fL (80.0-100.0); Mean Platelet Volume 8.7 fL (7.0-11.0); Mono # (Auto) 1.8 th/mm3 (0.0-0.9); Mono % (Auto) 9.4 % (0.0-8.0); Neut # (Auto) 14.9 th/mm3 (1.8-7.7); Neut % (Auto) 80.5 % (16.0-70.0); Platelet Count 328 th/mm3 (150-450); Red Blood Count 2.93 mil/mm3 (4.50-5.90); Red Cell Distribution Width 13.8 % (11.6-17.2); White Blood Count 18.5 th/mm3 (4.0-11.0)
[2018-03-26 05:07] LABS: Anion Gap 10 meq/L (5-15); Blood Urea Nitrogen 9 mg/dL (7-18); Calcium 9.5 mg/dL (8.5-10.1); Carbon Dioxide 25.6 meq/L (21.0-32.0); Chloride 102 meq/L (98-107); Glomerular Filtration Rate Greater Than 89 mL/min (>89); Glucose,Random 96 mg/dL (74-106); Potassium 3.3 meq/L (3.5-5.1); Sodium 138 meq/L (136-145)
[2018-03-26] MEDS: Heparin - SQ 10,000 UNITS/ML Vial SQ SCH ×3 (06:04→21:14)
[2018-03-26] MEDS: Senna/Docusate Sodium 8.6/50 MG Tablet PO SCH ×2 (09:50→21:14)
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
[2018-03-26] MEDS ORDERED: HYDROmorphone PF Inj 2 MG/ML Vial IV.PUSH PRN (12:52)
[2018-03-26] MEDS: Pantoprazole Inj 40 MG Vial IV.PUSH SCH (15:12)
[2018-03-27] MEDS: Sod Chloride 0.9% Inj 1,000 ML IV.CONT SCH ×2 (02:13→17:56)
[2018-03-27 05:10] LABS: Baso # (Auto) 0.1 th/mm3 (0.0-0.2); Baso % (Auto) 0.3 % (0.0-2.0); Eos # (Auto) 0.8 th/mm3 (0.0-0.4); Eos % (Auto) 4.4 % (0.0-4.0); Hematocrit 25.8 % (39.0-51.0); Hemoglobin 8.6 gm/dL (13.0-17.0); Lymph # (Auto) 1.8 th/mm3 (1.0-4.8); Lymph % (Auto) 9.8 % (9.0-44.0); Mean Corpuscular HGB Conc 33.4 % (32.0-36.0); Mean Corpuscular Hemoglobin 29.2 pg (27.0-34.0); Mean Corpuscular Volume 87.4 fL (80.0-100.0); Mean Platelet Volume 8.4 fL (7.0-11.0); Neut # (Auto) 13.7 th/mm3 (1.8-7.7); Neut % (Auto) 74.5 % (16.0-70.0); Platelet Count 384 th/mm3 (150-450); Red Blood Count 2.96 mil/mm3 (4.50-5.90); Red Cell Distribution Width 14.1 % (11.6-17.2); White Blood Count 18.4 th/mm3 (4.0-11.0)
[2018-03-27 05:31] LABS: Anion Gap 9 meq/L (5-15); Blood Urea Nitrogen 8 mg/dL (7-18); Calcium 9.7 mg/dL (8.5-10.1); Chloride 103 meq/L (98-107); Glomerular Filtration Rate Greater Than 89 mL/min (>89); Glucose,Random 91 mg/dL (74-106); Potassium 3.3 meq/L (3.5-5.1); Sodium 138 meq/L (136-145)
[2018-03-27] MEDS: Heparin - SQ 10,000 UNITS/ML Vial SQ SCH ×3 (06:00→22:49)
[2018-03-27] MEDS ORDERED: Magnesium Oxide 400 MG Tablet PO ONE (08:30)
[2018-03-27] MEDS: Senna/Docusate Sodium 8.6/50 MG Tablet PO SCH ×2 (09:02→22:49)
[2018-03-27 09:54] LABS: Eosinophils 2 % (0-4); Lymphocytes 6 % (9-44); Metamyelocytes 1 % (0-1); Monocytes 10 % (0-8); Promyelocyte 1 % (0-0)
[2018-03-27 09:55] LABS: Platelet Estimate Normal (Normal); Platelet Morphology Normal (Normal)
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
[2018-03-27] MEDS: Pantoprazole Inj 40 MG Vial IV.PUSH SCH (17:55)
[2018-03-28 04:41] LABS: Baso # (Auto) 0.1 th/mm3 (0.0-0.2); Baso % (Auto) 0.3 % (0.0-2.0); Eos # (Auto) 0.8 th/mm3 (0.0-0.4); Eos % (Auto) 3.6 % (0.0-4.0); Hematocrit 27.7 % (39.0-51.0); Hemoglobin 9.2 gm/dL (13.0-17.0); Lymph # (Auto) 2.6 th/mm3 (1.0-4.8); Lymph % (Auto) 12.6 % (9.0-44.0); Mean Corpuscular HGB Conc 33.4 % (32.0-36.0); Mean Corpuscular Hemoglobin 29.1 pg (27.0-34.0); Mean Corpuscular Volume 87.1 fL (80.0-100.0); Mono # (Auto) 1.8 th/mm3 (0.0-0.9); Mono % (Auto) 8.4 % (0.0-8.0); Neut # (Auto) 15.7 th/mm3 (1.8-7.7); Neut % (Auto) 75.1 % (16.0-70.0); Platelet Count 467 th/mm3 (150-450); Red Blood Count 3.18 mil/mm3 (4.50-5.90); Red Cell Distribution Width 14.4 % (11.6-17.2)
[2018-03-28 04:59] LABS: Anion Gap 8 meq/L (5-15); Blood Urea Nitrogen 7 mg/dL (7-18); Calcium 9.5 mg/dL (8.5-10.1); Carbon Dioxide 27.2 meq/L (21.0-32.0); Chloride 106 meq/L (98-107); Glomerular Filtration Rate Greater Than 89 mL/min (>89); Glucose,Random 101 mg/dL (74-106); Potassium 3.4 meq/L (3.5-5.1); Sodium 141 meq/L (136-145)
[2018-03-28 06:15] LABS: Eosinophils 3 % (0-4); Lymphocytes 4 % (9-44); Metamyelocytes 4 % (0-1); Monocytes 10 % (0-8); Promyelocyte 1 % (0-0); Tallied Nucleated RBC 1 (0-0)
[2018-03-28 06:16] LABS: Platelet Morphology Normal (Normal)
[2018-03-28] MEDS ORDERED: Magnesium Citrate Liq 300 ML Bottle PO ONE (06:52)
[2018-03-28] MEDS: Heparin - SQ 10,000 UNITS/ML Vial SQ SCH ×2 (08:07→17:26)
[2018-03-28] MEDS: Senna/Docusate Sodium 8.6/50 MG Tablet PO SCH ×2 (10:25→20:41)
[2018-03-28] MEDS ORDERED: Diatrizoate Meglum/Diatrizoate Sod Liq 9 ML UDC PO ONE (12:45)
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
[2018-03-28] MEDS ORDERED: Morphine Inj 4 MG/ML Vial IV.PUSH PRN (17:27)
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
[2018-03-29] MEDS: Heparin - SQ 10,000 UNITS/ML Vial SQ SCH ×2 (00:35→05:01)
[2018-03-29 04:25] LABS: Baso # (Auto) 0.1 th/mm3 (0.0-0.2); Baso % (Auto) 0.3 % (0.0-2.0); Eos # (Auto) 0.8 th/mm3 (0.0-0.4); Eos % (Auto) 3.6 % (0.0-4.0); Hematocrit 27.7 % (39.0-51.0); Hemoglobin 9.4 gm/dL (13.0-17.0); Lymph # (Auto) 2.1 th/mm3 (1.0-4.8); Lymph % (Auto) 9.2 % (9.0-44.0); Mean Corpuscular HGB Conc 33.8 % (32.0-36.0); Mean Corpuscular Hemoglobin 29.7 pg (27.0-34.0); Mean Corpuscular Volume 87.7 fL (80.0-100.0); Mean Platelet Volume 7.9 fL (7.0-11.0); Mono # (Auto) 1.6 th/mm3 (0.0-0.9); Mono % (Auto) 7.2 % (0.0-8.0); Neut # (Auto) 18.2 th/mm3 (1.8-7.7); Neut % (Auto) 79.7 % (16.0-70.0); Platelet Count 480 th/mm3 (150-450); Red Blood Count 3.16 mil/mm3 (4.50-5.90); Red Cell Distribution Width 14.2 % (11.6-17.2); White Blood Count 22.8 th/mm3 (4.0-11.0)
[2018-03-29 04:48] LABS: Anion Gap 8 meq/L (5-15); Blood Urea Nitrogen 9 mg/dL (7-18); Calcium 9.3 mg/dL (8.5-10.1); Carbon Dioxide 25.6 meq/L (21.0-32.0); Chloride 106 meq/L (98-107); Glomerular Filtration Rate Greater Than 89 mL/min (>89); Glucose,Random 78 mg/dL (74-106); Potassium 3.5 meq/L (3.5-5.1); Sodium 140 meq/L (136-145)
[2018-03-29] MEDS ORDERED: Metoprolol Tartrate 25 MG Tablet PO SCH (06:45)
[2018-03-29] MEDS ORDERED: Chlorhexidine Gluconate 2% 1 Pack (2 Cloths) TOPICAL SCH (06:45)
[2018-03-29] MEDS ORDERED: Sodium Chlor 0.9% Inj 500 ML IV.SIG SCH (07:00)
[2018-03-29 07:39] LABS: Eosinophils 3 % (0-4); Lymphocytes 3 % (9-44); Metamyelocytes 3 % (0-1); Monocytes 8 % (0-8); Myelocytes 4 % (0-0); Platelet Morphology Normal (Normal); Tallied Nucleated RBC 1 (0-0)
[2018-03-29] MEDS: Senna/Docusate Sodium 8.6/50 MG Tablet PO SCH ×2 (08:03→20:50)
--- NOTE | 2018-03-29 10:06 | ECG ---
Date Performed: 03/28/2018 Time Performed: 22:37:38 PTAGE: 57 years EKG: SINUS TACHYCARDIA NONSPECIFIC T-WAVE ABNORMALITY ABNORMAL RHYTHM ECG NO PREVIOUS TRACING DOCTOR: Kizzy Rhodes Interpretating Date/Time 03/29/2018 10:05:04
[2018-03-29] MEDS ORDERED: Neostigmine Inj 5 MG/5 ML Syringe IV.PUSH ONE (12:00)
[2018-03-29] MEDS ORDERED: Labetalol HCl Inj 100 MG/20 ML Vial IV.CONT ONE (12:00)
[2018-03-29] MEDS: Sodium Chlor 0.9% Inj 500 ML IV.SIG ONE ×2 (12:00)
[2018-03-29] MEDS ORDERED: Glycopyrrolate Inj 1 MG/5 ML Syringe IV.PUSH ONE (12:00)
[2018-03-29] MEDS ORDERED: Phenylephrine/NS 1000 MCG/10ML Syringe IV.PUSH ONE (12:00)
[2018-03-29] MEDS: Normosol-R pH 7.4 Inj 2,000 ML IV.CONT ONE ×2 (12:00)
[2018-03-29] MEDS ORDERED: Lidocaine PF 1% Inj 5 ML Syringe INFILTRATN ONE (12:00)
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
[2018-03-29 13:36] LABS: ABG Base Excess -0.6 mmol/L (-2-2); ABG PCO2 38 mmHg (38-42); ABG PO2 71 mmHG (61-120)
[2018-03-29] MEDS ORDERED: HYDROmorphone PF Inj 2 MG/ML Vial ONE ×2 (13:43→15:32)
[2018-03-29] MEDS ORDERED: *Meperidine Inj 25 MG/ML Vial PERIprocedural Use ONLY ONE (14:30)
[2018-03-29] MEDS ORDERED: fentaNYL Citrate Inj 100 MCG/2 ML Ampul ONE (14:40)
[2018-03-29] MEDS ORDERED: *morphine SULFATE 10 MG/ML PERIprocedure ONLY ONE ×2 (14:55→15:13)
[2018-03-29] MEDS ORDERED: Post-op Orders (for Pharmacy) OTHER ONE (15:57)
[2018-03-29] MEDS ORDERED: Naloxone Inj 0.4 MG/ML Vial IV.PUSH PRN (15:57)
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
[2018-03-29] MEDS: Morphine Inj 4 MG/ML Vial IV.PUSH PRN ×4 (18:30→23:24)
[2018-03-29] MEDS: Pantoprazole Inj 40 MG Vial IV.PUSH SCH (19:30)
[2018-03-30 00:18] LABS: Hematocrit 33.4 % (39.0-51.0); Hemoglobin 11.3 gm/dL (13.0-17.0)
[2018-03-30] MEDS: Morphine Inj 4 MG/ML Vial IV.PUSH PRN ×10 (01:23→21:02)
[2018-03-30 04:29] LABS: Baso # (Auto) 0.1 th/mm3 (0.0-0.2); Baso % (Auto) 0.3 % (0.0-2.0); Eos # (Auto) 0.2 th/mm3 (0.0-0.4); Eos % (Auto) 0.5 % (0.0-4.0); Hematocrit 32.3 % (39.0-51.0); Hemoglobin 10.8 gm/dL (13.0-17.0); Lymph # (Auto) 2.2 th/mm3 (1.0-4.8); Lymph % (Auto) 7.5 % (9.0-44.0); Mean Corpuscular HGB Conc 33.6 % (32.0-36.0); Mean Corpuscular Hemoglobin 28.8 pg (27.0-34.0); Mean Corpuscular Volume 85.8 fL (80.0-100.0); Mean Platelet Volume 7.6 fL (7.0-11.0); Mono # (Auto) 2.5 th/mm3 (0.0-0.9); Mono % (Auto) 8.4 % (0.0-8.0); Neut # (Auto) 24.3 th/mm3 (1.8-7.7); Neut % (Auto) 83.3 % (16.0-70.0); Platelet Count 551 th/mm3 (150-450); Red Blood Count 3.76 mil/mm3 (4.50-5.90); Red Cell Distribution Width 14.8 % (11.6-17.2); White Blood Count 29.1 th/mm3 (4.0-11.0)
[2018-03-30 04:38] LABS: Anion Gap 8 meq/L (5-15); Blood Urea Nitrogen 9 mg/dL (7-18); Calcium 8.8 mg/dL (8.5-10.1); Carbon Dioxide 24.6 meq/L (21.0-32.0); Chloride 108 meq/L (98-107); Glomerular Filtration Rate Greater Than 89 mL/min (>89); Glucose,Random 105 mg/dL (74-106); Potassium 3.8 meq/L (3.5-5.1); Sodium 141 meq/L (136-145)
[2018-03-30] MEDS: Heparin - SQ 10,000 UNITS/ML Vial SQ SCH (07:41)
[2018-03-30 09:49] LABS: Lymphocytes 3 % (9-44); Metamyelocytes 2 % (0-1); Monocytes 8 % (0-8); Myelocytes 3 % (0-0); Platelet Morphology Normal (Normal); Tallied Nucleated RBC 3 (0-0)
[2018-03-30] MEDS: Senna/Docusate Sodium 8.6/50 MG Tablet PO SCH ×2 (10:00→21:21)
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
[2018-03-30] MEDS: Enoxaparin Inj 40 MG/0.4 ML Syringe SQ SCH (13:51)
[2018-03-30] MEDS: Pantoprazole Inj 40 MG Vial IV.PUSH SCH (15:44)
[2018-03-31] MEDS: Morphine Inj 4 MG/ML Vial IV.PUSH PRN ×8 (00:28→22:02)
[2018-03-31] MEDS: Senna/Docusate Sodium 8.6/50 MG Tablet PO SCH ×2 (09:27→20:03)
[2018-03-31 09:38] LABS: Baso # (Auto) 0.1 th/mm3 (0.0-0.2); Baso % (Auto) 0.2 % (0.0-2.0); Eos # (Auto) 1.1 th/mm3 (0.0-0.4); Eos % (Auto) 3.9 % (0.0-4.0); Hematocrit 30.7 % (39.0-51.0); Hemoglobin 10.2 gm/dL (13.0-17.0); Lymph # (Auto) 2.4 th/mm3 (1.0-4.8); Lymph % (Auto) 8.9 % (9.0-44.0); Mean Corpuscular HGB Conc 33.4 % (32.0-36.0); Mean Corpuscular Hemoglobin 29.2 pg (27.0-34.0); Mean Corpuscular Volume 87.4 fL (80.0-100.0); Mean Platelet Volume 7.9 fL (7.0-11.0); Mono # (Auto) 2.2 th/mm3 (0.0-0.9); Mono % (Auto) 8.1 % (0.0-8.0); Neut # (Auto) 21.5 th/mm3 (1.8-7.7); Neut % (Auto) 78.9 % (16.0-70.0); Platelet Count 597 th/mm3 (150-450); Red Blood Count 3.51 mil/mm3 (4.50-5.90); Red Cell Distribution Width 14.6 % (11.6-17.2); White Blood Count 27.2 th/mm3 (4.0-11.0)
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
[2018-03-31 11:58] LABS: Eosinophils 2 % (0-4); Lymphocytes 1 % (9-44); Metamyelocytes 7 % (0-1); Monocytes 7 % (0-8); Myelocytes 1 % (0-0); Tallied Nucleated RBC 2 (0-0)
[2018-03-31 12:00] LABS: Platelet Morphology Normal (Normal)
[2018-03-31] MEDS: Enoxaparin Inj 40 MG/0.4 ML Syringe SQ SCH (13:42)
[2018-03-31] MEDS: Pantoprazole Inj 40 MG Vial IV.PUSH SCH (15:09)
[2018-04-01] MEDS: Morphine Inj 4 MG/ML Vial IV.PUSH PRN ×8 (01:23→21:06)
[2018-04-01] MEDS: Senna/Docusate Sodium 8.6/50 MG Tablet PO SCH (08:00)
[2018-04-01 08:18] LABS: Baso % (Auto) 0.2 % (0.0-2.0); Eos # (Auto) 0.9 th/mm3 (0.0-0.4); Eos % (Auto) 3.4 % (0.0-4.0); Hematocrit 30.3 % (39.0-51.0); Hemoglobin 10.2 gm/dL (13.0-17.0); Lymph # (Auto) 2.5 th/mm3 (1.0-4.8); Lymph % (Auto) 9.6 % (9.0-44.0); Mean Corpuscular HGB Conc 33.7 % (32.0-36.0); Mean Corpuscular Hemoglobin 29.5 pg (27.0-34.0); Mean Corpuscular Volume 87.6 fL (80.0-100.0); Mean Platelet Volume 7.8 fL (7.0-11.0); Mono % (Auto) 7.9 % (0.0-8.0); Neut # (Auto) 20.1 th/mm3 (1.8-7.7); Neut % (Auto) 78.9 % (16.0-70.0); Platelet Count 641 th/mm3 (150-450); Red Blood Count 3.45 mil/mm3 (4.50-5.90); Red Cell Distribution Width 14.9 % (11.6-17.2); White Blood Count 25.4 th/mm3 (4.0-11.0)
[2018-04-01 10:28] LABS: Eosinophils 2 % (0-4); Lymphocytes 10 % (9-44); Monocytes 7 % (0-8); Myelocytes 3 % (0-0); Promyelocyte 2 % (0-0); Toxic Granulation 1+
[2018-04-01 10:29] LABS: Platelet Morphology Normal (Normal)
[2018-04-01] MEDS: Enoxaparin Inj 40 MG/0.4 ML Syringe SQ SCH (13:32)
[2018-04-01] MEDS: Pantoprazole Inj 40 MG Vial IV.PUSH SCH (16:51)
[2018-04-02] MEDS: Senna/Docusate Sodium 8.6/50 MG Tablet PO SCH (01:32)
[2018-04-02] MEDS: Morphine Inj 4 MG/ML Vial IV.PUSH PRN ×3 (01:36→08:32)
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
[2018-04-02] MEDS ORDERED: Influenza (Quadrivalent) Vaccine 0.5 ML Syringe IM ONE (06:00)
[2018-04-02] MEDS ORDERED: [UNRECOGNIZED DRUG - OTHER] IM ONE (06:00)
[2018-04-02] MEDS ORDERED: Pneumococcal-13 Valent Ped Vacc Inj 0.5 ML Syringe IM ONE (06:06)
[2018-04-02] MEDS ORDERED: Haemoph B Polysac Conj Vaccine 0.5 ML Vial IM ONE (12:00)
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
== END 2018-04-02 14:01 | disposition home or self-care (01) ==
LOC: NEPC 11:52 → NEDA 14:37 → N03 17:05 → N06 03-23 18:16 → N03 03-29 13:56 → N05 03-30 14:39
PROVIDERS: ADMIT Surgery; ATTEND Surgery
PROC: SPLCTMY (ICD-10-PCS; 2018-03-29 12:00)

== ENCOUNTER 2018-07-04 21:10 | Inpatient (IN) ==
[2018-07-04 22:24] LABS: Baso % (Auto) 0.4 % (0.0-2.0); Eos # (Auto) 0.6 th/mm3 (0.0-0.4); Eos % (Auto) 5.4 % (0.0-4.0); Hematocrit 40.5 % (39.0-51.0); Hemoglobin 13.5 gm/dL (13.0-17.0); Lymph # (Auto) 3.9 th/mm3 (1.0-4.8); Lymph % (Auto) 33.6 % (9.0-44.0); Mean Corpuscular HGB Conc 33.3 % (32.0-36.0); Mean Corpuscular Hemoglobin 27.3 pg (27.0-34.0); Mean Platelet Volume 8.4 fL (7.0-11.0); Mono # (Auto) 1.3 th/mm3 (0.0-0.9); Mono % (Auto) 11.1 % (0.0-8.0); Neut # (Auto) 5.7 th/mm3 (1.8-7.7); Neut % (Auto) 49.5 % (16.0-70.0); Platelet Count 617 th/mm3 (150-450); Red Blood Count 4.94 mil/mm3 (4.50-5.90); Red Cell Distribution Width 17.9 % (11.6-17.2); White Blood Count 11.5 th/mm3 (4.0-11.0)
[2018-07-04 22:38] LABS: Albumin 3.7 g/dL (3.4-5.0); Anion Gap 7 meq/L (5-15); Aspartate Aminotransferase 12 U/L (15-37); Blood Urea Nitrogen 9 mg/dL (7-18); Calcium 10.1 mg/dL (8.5-10.1); Carbon Dioxide 27.7 meq/L (21.0-32.0); Chloride 106 meq/L (98-107); Glomerular Filtration Rate 82 mL/min (>89); Glucose,Random 89 mg/dL (74-106); Magnesium 1.9 mg/dL (1.5-2.5); Potassium 4.2 meq/L (3.5-5.1); Sodium 141 meq/L (136-145)
[2018-07-04 22:39] LABS: Alanine Aminotransferase 26 U/L (12-78)
[2018-07-04 22:49] LABS: Alkaline Phosphatase 123 U/L (45-117); Total Protein 8.1 g/dL (6.4-8.2)
[2018-07-04 23:33] LABS: Amphetamine Screen,Urine Neg (Neg); Barbiturate Screen,Urine Neg (Neg); Cannabinoid Screen,Urine Neg (Neg); Cocaine Screen,Urine Neg (Neg)
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
[2018-07-04 23:36] LABS: Opiate Screen,Urine Neg (Neg)
[2018-07-05] MEDS ORDERED: Bisacodyl 10 MG Supp RECTAL PRN (11:58)
[2018-07-05] MEDS ORDERED: Aluminum/Magnesium/Simethacone Susp 30 ML UDC PO PRN (11:58)
[2018-07-05] MEDS ORDERED: Influenza (Quadrivalent) Vaccine 0.5 ML Syringe IM ONE (21:00)
[2018-07-05] MEDS: Senna/Docusate Sodium 8.6/50 MG Tablet PO SCH (22:12)
[2018-07-06 07:38] LABS: Calcium 9.6 mg/dL (8.5-10.1); Potassium 4.1 meq/L (3.5-5.1)
[2018-07-06 07:40] LABS: Chol/HDL Ratio 4.4 Ratio; HDL Cholesterol 38.6 mg/dL (40.0-60.0)
[2018-07-06] MEDS: Senna/Docusate Sodium 8.6/50 MG Tablet PO SCH ×2 (08:15→21:05)
[2018-07-06] MEDS ORDERED: Influenza (Quadrivalent) Vaccine 0.5 ML Syringe IM ONE (09:00)
[2018-07-06 14:04] LABS: Hemoglobin A1c 5.8 % (4.3-6.0)
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
[2018-07-06] MEDS: Gabapentin 300 MG Capsule PO SCH ×2 (16:29→18:07)
[2018-07-06] MEDS: buPROPion 150 MG XL 24 HR Tablet PO SCH (16:29)
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
[2018-07-06] MEDS: traZODone 50 MG Tablet PO SCH (21:04)
[2018-07-07] MEDS: buPROPion 150 MG XL 24 HR Tablet PO SCH (08:42)
[2018-07-07] MEDS: Gabapentin 300 MG Capsule PO SCH ×3 (08:42→17:42)
[2018-07-07] MEDS: Senna/Docusate Sodium 8.6/50 MG Tablet PO SCH ×2 (08:44→21:23)
[2018-07-07 09:22] LABS: Bilirubin,Urine Negative (Negative); Clarity,Urine Hazy (Clear); Color,Urine Yellow (Yellw/Straw); Glucose,Urine (UA) Negative (Negative); Leukocyte Esterase,Urine Negative (Negative); Mucus,Urine Few /lpf (Occasional); Nitrite,Urine Negative (Negative); Specific Gravity,Urine 1.013 (1.002-1.035); Squamous Epithelial Cell,Urine <1 /hpf (0-5)
[2018-07-07 10:09] LABS: Baso # (Auto) 0.1 th/mm3 (0.0-0.2); Baso % (Auto) 0.9 % (0.0-2.0); Eos # (Auto) 0.5 th/mm3 (0.0-0.4); Eos % (Auto) 4.6 % (0.0-4.0); Hematocrit 41.6 % (39.0-51.0); Hemoglobin 13.7 gm/dL (13.0-17.0); Lymph # (Auto) 2.5 th/mm3 (1.0-4.8); Lymph % (Auto) 26.3 % (9.0-44.0); Mean Corpuscular HGB Conc 32.9 % (32.0-36.0); Mean Corpuscular Volume 81.9 fL (80.0-100.0); Mono # (Auto) 0.8 th/mm3 (0.0-0.9); Mono % (Auto) 8.3 % (0.0-8.0); Neut # (Auto) 5.8 th/mm3 (1.8-7.7); Neut % (Auto) 59.9 % (16.0-70.0); Platelet Count 620 th/mm3 (150-450); Red Blood Count 5.08 mil/mm3 (4.50-5.90); Red Cell Distribution Width 18.1 % (11.6-17.2); White Blood Count 9.7 th/mm3 (4.0-11.0)
[2018-07-07 11:09] LABS: Hepatitits B Surface Antigen Nonreactive (Nonreactive)
[2018-07-07 11:24] LABS: Hepatitis A IgM Antibody Nonreactive (Nonreactive)
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
--- NOTE | 2018-07-07 15:27 | CT ---
EXAM DATE: 07/07/2018 3:11 PM EDT AGE/SEX: 57 years / Male INDICATIONS: Left lower abdomen pain today. CLINICAL DATA: This is the patient's initial encounter. Patient reports that signs and symptoms have been present for 1 day and indicates a pain score of 7/10. MEDICAL/SURGICAL HISTORY: Renal calculi. Splenectomy. ORAL CONTRAST: No oral contrast ingested. RADIATION DOSE: 12.61 CTDI (mGy) COMPARISON: [facility] [place], CT ABDOMEN & PELVIS W CONTRAST, 03/28/2018. . TECHNIQUE: Multiple contiguous axial images were obtained through the abdomen and pelvis following b olus infusion of 90 ml Omnipaque 350 (iohexol) nonionic water-soluble contrast as a single exam dos e. No oral contrast ingested. Using automated exposure control and adjustment of the mA and/or kV ac cording to patient size, radiation dose was kept as low as reasonably achievable to obtain optimal di agnostic quality images. DICOM format image data is available electronically for review and comparis on. FINDINGS: Lower Lungs: The visualized lower lungs are clear. Liver: The liver has a heterogeneous density without space-occupying lesion. There is no dilation of the biliary tree. Spleen: The spleen is surgically absent. In the left upper quadrant there is a residual mixed densit y mass measuring 7.8 x 4.5 cm across. 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 There is a 1 cm accessory splenule on image 16. Pancreas: Unremarkable without mass or calcification. Kidneys: Normal in size and shape. No evidence of mass or hydronephrosis. Adrenal Glands: Unremarkable. Aorta: The aorta and proximal iliac vessels are grossly unremarkable without aneurysmal dilation. Bowel/Mesentery: The bowel loops are grossly unremarkable. The cecum and sigmoid colon have a normal configuration. Abdominal Wall: Intact. Retroperitoneum: No evidence of adenopathy in the retrocrural, para-aortic, or deep pelvic regions. Bladder: Contours are smooth. Reproductive Organs: No abnormal masses or calcifications seen. Inguinal: The inguinal region is unremarkable without evidence of adenopathy. Bony Structures: Prominent cyst in the right ilium posteriorly. CONCLUSION: 1. Mixed density mass in the splenic bed measuring 7.8 x 4.5 cm across. It does abut the expected ta il of the pancreas therefore could be a multiloculated pancreatic pseudocyst. Could also be residual hematoma possibly infected related to previous splenectomy. Some fluid does extend more superiorly to extend just underneath the left hemidiaphragm. Correlate for fever. 2. Mildly heterogeneous liver without focal masses. Electronically signed by: Lukas Pascual MD 07/07/2018 3:25 PM EDT
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
[2018-07-07] MEDS: traZODone 50 MG Tablet PO SCH (21:23)
[2018-07-08] MEDS: Senna/Docusate Sodium 8.6/50 MG Tablet PO SCH ×2 (08:49→21:22)
[2018-07-08] MEDS: Gabapentin 300 MG Capsule PO SCH ×3 (08:49→17:14)
[2018-07-08] MEDS: buPROPion 150 MG XL 24 HR Tablet PO SCH (08:49)
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
[2018-07-08] MEDS ORDERED: Ibuprofen 400 MG Tablet PO PRN (11:15)
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
[2018-07-08] MEDS: traZODone 50 MG Tablet PO SCH (21:22)
[2018-07-08] MEDS: Acetaminophen 325 MG Tablet PO PRN (21:26)
[2018-07-09 01:48] LABS: HSV 1 IgG Positive (Negative); HSV 2 IgG Negative (Negative)
[2018-07-09] MEDS: buPROPion 150 MG XL 24 HR Tablet PO SCH (08:40)
[2018-07-09] MEDS: Senna/Docusate Sodium 8.6/50 MG Tablet PO SCH ×2 (08:41→20:14)
[2018-07-09] MEDS: Gabapentin 300 MG Capsule PO SCH ×4 (09:00→18:12)
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
--- NOTE | 2018-07-09 15:08 | P.PNPSY ---
Subjective Chief Complaint: Suicidal ideation Remarks: Patient seen and examined with nurse. Chart reviewed. Case discussed with nursing staff. No behavioral issues noted overnight. Case discussed in treatment team. On my examination today, the patient says that he is excited to go to chemical dependency treatment facility. He has been calling but they do not yet have a bed. No complaints of anxiety. Mood is improved. No SI or HI. Sleep remains somewhat poor, and we discuss titrating trazodone to manage this issue. Denies side effects from medications. No acute physical complaints. Vital Signs Temp Pulse Resp BP Pulse Ox 07/09/18 06:00 98.1 F 80 17 114/59 L 95 Intake and Output 07/09/18 07/09/18 07/09/18 06:59 14:59 22:59 Intake Total 480 / 480 Balance 480 / 480 Intake: Oral 480 / 480 Laboratory Results - last 24 hr 07/07/18 09:50 HSV I IgG Ab Positive HSV II IgG Negative Labs reviewed. Review of Systems All other systems reviewed negative except as stated in HPI Mental Status Examination Appearance: Appropriate Consciousness: Alert Orientation: x4 Motor Activity: Normal gait, Other (No motoric abnormalities noted) Speech: Unremarkable Language: Adequate Fund of Knowledge: Adequate Attention and Concentration: Adequate Memory: Unremarkable Mood: Appropriate Affect: Appropriate Thought Process & Associations: Intact, Logical, Goal directed, Linear Thought Content: Appropriate Hallucination Type: None Delusion Type: None Suicidal Ideation: No Homicidal Ideation: No Mental Status Exam Remarks: Insight and judgment are fair. Assessment and Plan - Assessment (1) Major depressive disorder, recurrent severe without psychotic features Code(s): F33.2 - Major depressive disorder, recurrent severe without psychotic features Status: Acute (2) Synthetic cannabinoid abuse Code(s): F19.10 - Other psychoactive substance abuse, uncomplicated Status: Acute - Plan Plan: Patient is improving from a psychiatric standpoint. Titrate trazodone to 100 mg at bedtime to help with sleep. Hospitalist input noted and appreciated. Surgery input noted and appreciated. Continue to monitor on the inpatient unit. Continue other medications and care as ordered. Justification for Continued Inpatient Stay: Medication changes. Risk for decompensation in less restrictive setting. Discharge Planning: Pending bed at chemical dependency treatment program Request Healthcare Surrogate/Guardian Advocate?: No
[2018-07-09] MEDS: traZODone 100 MG Tablet PO SCH (20:14)
[2018-07-09] MEDS: Acyclovir 200 MG Capsule PO SCH (21:09)
[2018-07-10] MEDS: Acyclovir 200 MG Capsule PO SCH ×3 (05:14→21:20)
[2018-07-10] MEDS: Gabapentin 300 MG Capsule PO SCH ×3 (08:35→18:09)
[2018-07-10] MEDS: Senna/Docusate Sodium 8.6/50 MG Tablet PO SCH ×2 (08:35→20:50)
[2018-07-10] MEDS: buPROPion 150 MG XL 24 HR Tablet PO SCH (09:10)
--- NOTE | 2018-07-10 12:08 | P.PNPSY ---
Subjective Chief Complaint: Suicidal ideation Remarks: Patient seen and examined with nurse. Chart reviewed. Case discussed with nursing staff. Case discussed with counselor is assisting with discharge planning. On my examination today, the patient feels he is improving with psychotropic medication treatment. He slept better with titration of trazodone. He remains committed to entering into chemical dependency treatment program but says that he has been getting the run around from that facility; I have asked the counselor to place a call on his behalf. Denies side effects from medications. No physical complaints. Vital Signs Temp Pulse Resp BP Pulse Ox 07/10/18 05:42 98.4 F 69 17 104/63 95 07/09/18 17:31 98.1 F 84 16 107/55 L 95 Intake and Output 07/09/18 07/10/18 07/10/18 22:59 06:59 14:59 Intake Total 360 / 360 Balance 360 / 360 Intake: Oral 360 / 360 Labs reviewed. No new labs. Review of Systems All other systems reviewed negative except as stated in HPI Mental Status Examination Appearance: Appropriate Consciousness: Alert Orientation: x4 Motor Activity: Normal gait, Other (No abnormal motor movements appreciated) Speech: Unremarkable Language: Adequate Fund of Knowledge: Adequate Attention and Concentration: Adequate Memory: Unremarkable Mood: Appropriate Affect: Appropriate Thought Process & Associations: Intact, Logical, Goal directed, Linear Thought Content: Appropriate Hallucination Type: None Delusion Type: None Suicidal Ideation: No Homicidal Ideation: No Insight: Fair Judgment: Impulsive Assessment and Plan - Assessment (1) Major depressive disorder, recurrent severe without psychotic features Code(s): F33.2 - Major depressive disorder, recurrent severe without psychotic features Status: Acute (2) Synthetic cannabinoid abuse Code(s): F19.10 - Other psychoactive substance abuse, uncomplicated Status: Acute - Plan Plan: Continue current psychiatric medications as ordered. Continue to monitor on the inpatient unit. Continue other medications and care as ordered. Justification for Continued Inpatient Stay: High risk for decompensation in less restrictive environment. Discharge Planning: Pending further discharge planning. Request Healthcare Surrogate/Guardian Advocate?: No
[2018-07-10] MEDS: traZODone 100 MG Tablet PO SCH (20:50)
[2018-07-11] MEDS: Acetaminophen 325 MG Tablet PO PRN ×2 (03:47→20:48)
[2018-07-11] MEDS: Acyclovir 200 MG Capsule PO SCH ×3 (05:35→21:40)
[2018-07-11] MEDS: buPROPion 150 MG XL 24 HR Tablet PO SCH (09:03)
[2018-07-11] MEDS: Senna/Docusate Sodium 8.6/50 MG Tablet PO SCH ×2 (09:03→20:47)
[2018-07-11] MEDS: Gabapentin 300 MG Capsule PO SCH ×3 (09:03→18:22)
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
[2018-07-11] MEDS: traZODone 100 MG Tablet PO SCH (20:48)
[2018-07-12] MEDS: Acyclovir 200 MG Capsule PO SCH ×3 (06:14→21:25)
[2018-07-12] MEDS: buPROPion 150 MG XL 24 HR Tablet PO SCH (09:04)
[2018-07-12] MEDS: Senna/Docusate Sodium 8.6/50 MG Tablet PO SCH ×2 (09:04→20:34)
[2018-07-12] MEDS: Gabapentin 300 MG Capsule PO SCH ×3 (09:04→17:16)
--- NOTE | 2018-07-12 10:22 | P.PNPSY ---
Subjective Chief Complaint: Suicidal ideation Remarks: Patient seen and examined with nurse. Chart reviewed. Case discussed with nursing staff. Case discussed with treatment team. Counselor reports that the patient has a bed at chemical dependency treatment program in [place] beginning of next week. Counselor is working on transport to that program. Patient did have an episode of abdominal pain overnight, evaluated by the hospitalist. On my examination today, the patient reports that his abdominal discomfort has resolved. He has no physical complaints at this time. He says that he became a little testy this morning because 1 of the floor staff confiscated his art supplies. Patient notes that he draws as a coping skill. I have placed in order to allow the patient to use his art supplies. No SI or HI. No side effects from medications. Vital Signs Temp Pulse Resp BP Pulse Ox 07/12/18 04:57 98.8 F 76 16 90/54 L 96 07/11/18 18:07 77 17 147/77 H Laboratory Results - last 24 hr 07/07/18 13:25 HIV RNA copies/mL Ultra Less than 20.0 HIV RNA logcopies/mL Ult Less than 1.30 Labs reviewed. Review of Systems All other systems reviewed negative except as stated in HPI Mental Status Examination Appearance: Appropriate Consciousness: Alert Orientation: x4 Motor Activity: Normal gait Speech: Unremarkable Language: Adequate Fund of Knowledge: Adequate Attention and Concentration: Adequate Memory: Unremarkable Mood: Appropriate Affect: Appropriate Thought Process & Associations: Intact, Logical, Goal directed, Linear Thought Content: Appropriate Hallucination Type: None Delusion Type: None Suicidal Ideation: No Homicidal Ideation: No Insight: Fair Judgment: Impulsive Assessment and Plan - Assessment (1) Major depressive disorder, recurrent severe without psychotic features Code(s): F33.2 - Major depressive disorder, recurrent severe without psychotic features Status: Acute (2) Synthetic cannabinoid abuse Code(s): F19.10 - Other psychoactive substance abuse, uncomplicated Status: Acute - Plan Plan: Continue Wellbutrin and trazodone as ordered. Hospitalist input noted and appreciated. Continue to monitor on the inpatient unit. Continue other medications and care as ordered. Justification for Continued Inpatient Stay: High risk for decompensation in less restrictive environment. Discharge Planning: Anticipate discharge to chemical dependency treatment program after the weekend. Request Healthcare Surrogate/Guardian Advocate?: No
--- NOTE | 2018-07-12 12:53 | P.TTN ---
- Patient Problems Problems: 1. Discharge planning 2. Medication compliance 3. Knowledge deficit 4. Lack of coping skills - Progress Toward Goals Psychiatric Counselors Present: Don Pulido Jr., [place] (Pt. will be discharged to a treatment center in [facility] on Sunday.) Group Spec/RT/OT/KENNEDY Present: BRENT Santillan (Pt. attends select groups.) - Documentation Teaching Recipient: Patient
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
[2018-07-12] MEDS: traZODone 100 MG Tablet PO SCH (20:34)
[2018-07-12] MEDS: Acetaminophen 325 MG Tablet PO PRN (21:00)
[2018-07-13] MEDS: Acyclovir 200 MG Capsule PO SCH ×3 (06:01→21:04)
[2018-07-13] MEDS: Senna/Docusate Sodium 8.6/50 MG Tablet PO SCH ×2 (08:41→21:04)
[2018-07-13] MEDS: Gabapentin 300 MG Capsule PO SCH ×3 (08:41→17:31)
[2018-07-13] MEDS: buPROPion 150 MG XL 24 HR Tablet PO SCH (08:41)
--- NOTE | 2018-07-13 18:24 | P.PNPSY ---
Subjective Chief Complaint: Suicidal ideation Remarks: Reviewed electronic medical records and discussed case with staff. Follow-up was conducted in the patient's room with MICHELLE Huang present. Patient's to be discharged to a treatment plan on Sunday. He reports that he is very happy about this. He states he has been sleeping well and his appetite's been good. He goes into an extended discussion about how excited he is about his recovery and the plans he is making to ensure his success. He denies any complaints at this time. Mental Status Examination Appearance: Appropriate Consciousness: Alert Orientation: x4 Motor Activity: Normal gait Speech: Unremarkable Language: Adequate Fund of Knowledge: Adequate Attention and Concentration: Adequate Memory: Unremarkable Mood: Appropriate Affect: Appropriate Thought Process & Associations: Intact, Logical, Goal directed, Linear Thought Content: Appropriate Hallucination Type: None Delusion Type: None Suicidal Ideation: No Suicidal Plan: No Suicidal Intention: No Homicidal Ideation: No Homicidal Plan: No Homicidal Intention: No Insight: Fair Judgment: Impulsive Assessment and Plan - Assessment (1) Major depressive disorder, recurrent severe without psychotic features Code(s): F33.2 - Major depressive disorder, recurrent severe without psychotic features Status: Acute - Plan Plan: Patient will be reevaluated by the attending psychiatrist. Continue with current treatment plan. A discharge plan is apparently in place for the beginning of the week. Justification for Continued Inpatient Stay: Moving this patient to a less restrictive environment would likely result in decompensation. Request Healthcare Surrogate/Guardian Advocate?: No
[2018-07-13] MEDS: traZODone 100 MG Tablet PO SCH (21:04)
[2018-07-14] MEDS: Acyclovir 200 MG Capsule PO SCH ×3 (05:45→21:11)
[2018-07-14] MEDS: buPROPion 150 MG XL 24 HR Tablet PO SCH (08:27)
[2018-07-14] MEDS: Senna/Docusate Sodium 8.6/50 MG Tablet PO SCH ×2 (08:28→21:12)
[2018-07-14] MEDS: Gabapentin 300 MG Capsule PO SCH ×3 (08:28→17:45)
--- NOTE | 2018-07-14 12:16 | P.PNPSY ---
Subjective Chief Complaint: Suicidal ideation Remarks: Reviewed electronic medical records and discussed case with staff. Follow-up was conducted in the [facility] area with MICHELLE Huang present. Patient states that he is going by bus tomorrow to a [facility] location in [place]. He states that he is happy that he has a place to go and his happy that it is out of this area so that he will not be influenced by the people that he knows in this area. He denies SI/HI. Very cooperative and focused. Review of Systems All other systems reviewed negative except as stated in HPI Mental Status Examination Appearance: Appropriate Consciousness: Alert Orientation: x4 Motor Activity: Normal gait Speech: Unremarkable Language: Adequate Fund of Knowledge: Adequate Attention and Concentration: Adequate Memory: Unremarkable Mood: Appropriate Affect: Appropriate Thought Process & Associations: Intact, Logical, Goal directed, Linear Thought Content: Appropriate Hallucination Type: None Delusion Type: None Suicidal Ideation: No Suicidal Plan: No Suicidal Intention: No Homicidal Ideation: No Homicidal Plan: No Homicidal Intention: No Insight: Adequate Judgment: Adequate Assessment and Plan - Assessment (1) Major depressive disorder, recurrent severe without psychotic features Code(s): F33.2 - Major depressive disorder, recurrent severe without psychotic features Status: Acute - Plan Plan: Continue current treatment plan. Justification for Continued Inpatient Stay: Moving patient to a less restrictive environment may result in his decompensation. Request Healthcare Surrogate/Guardian Advocate?: No
[2018-07-14] MEDS: Acetaminophen 325 MG Tablet PO PRN ×2 (12:53→21:09)
[2018-07-14] MEDS: traZODone 100 MG Tablet PO SCH (21:12)
[2018-07-15] MEDS: Acetaminophen 325 MG Tablet PO PRN (04:38)
[2018-07-15] MEDS: Acyclovir 200 MG Capsule PO SCH (06:02)
[2018-07-15] MEDS: Senna/Docusate Sodium 8.6/50 MG Tablet PO SCH ×2 (08:27→21:17)
[2018-07-15] MEDS: Gabapentin 300 MG Capsule PO SCH (08:27)
[2018-07-15] MEDS: buPROPion 150 MG XL 24 HR Tablet PO SCH (08:27)
--- NOTE | 2018-07-15 11:26 | P.DSPSY ---
Psychiatry Discharge Summary Inpatient Psychiatric care?: Yes Advance Directives: No Mental Health Advance Directive: No Health Care Proxy: No - Admission Admission Date: July 05, 2018 12:13 - Admission Diagnosis (1) Major depressive disorder, recurrent severe without psychotic features Code(s): F33.2 - Major depressive disorder, recurrent severe without psychotic features Brief History: Patient is a 57-year-old male who extensive history of depressive disorder. Patient has a history of Wellbutrin 300 mg daily, Neurontin 300 mg p.o. 3 times daily, trazodone 400 mg p.o. nightly. Patient says that "keeps him from crying. " Patient is here for with suicidal ideation and intent with a plan to jump off the bridge. He is quite tearful during the interview but says he wants to live and get better. Today he denies suicidal or homicidal intent or plan. His chief stressor is homelessness and financial concerns over the past 3 years. He sleeps on the sidewalks. He was recently in [facility] by the and got kicked out because of being positive for K2 spice. Patient admits to an addiction to this substance. No psychosis elicited. Mood and affect is despairing and tearful. 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 He is also complaining of mild to moderate flank pain and has a history of kidney stones Tobacco Use In Past 30 Days: No How Often Do You Have a Drink Containing Alcohol: Never Hospital Course: Patient was admitted to a locked, inpatient psychiatric unit. A general medical consultation was obtained. A surgical consultation was requested to follow up on patient's complaints of abdominal pain, and no surgical management was recommended. Appropriate precautions were in place throughout patient's hospital stay. Patient was seen and examined on the unit by psychiatry and also visited by counselor. Psychotropic medications were adjusted. Patient tolerated medication changes well without side effects. Patient had improvement in presenting psychiatric symptomatology during the course of his hospital stay. There was no evidence of any suicidality or homicidality while the patient was on the inpatient unit. There was no evidence of self-care deficit. Working with the counselor, patient has arranged for placement in chemical dependency treatment facility. On the day of discharge: Patient seen and examined with nurse. Chart reviewed. Case discussed with nursing staff. No behavioral issues noted overnight. Case discussed with counselor. On my examination today, the patient requests discharge from the inpatient psychiatric unit today so that he may go to chemical dependency treatment program. He says that he is excited to attend this program. He denies any suicidal or homicidal ideation, intent or plan. He says that his mood is good and that he does not feel depressed at all. I can elicit no depressive or hypomanic/manic symptoms. He denies any audiovisual hallucinations. I can elicit no delusional beliefs. There is no evidence of impairment in reality construction. He denies side effects from medications. He does complain of some mild constipation but is still passing flatus. No other physical complaints. Suicide and violence risk assessment on day of discharge both suggest lower imminent risk from mental illness as defined under the Mai act, and the patient's level of function is adequate for outpatient care. Patient has maximized benefit from this inpatient psychiatric hospital stay. He will be discharged today with transport as arranged by counselor to chemical dependency treatment facility. Psychiatric follow-up as arranged by counselor. Patient is also to follow up with primary care. Patient counseled to return to psychiatric emergency room for any concerning symptoms as part of a general safety plan. - Discharge Discharge Date: 07/15/18 - Discharge Diagnosis (1) Major depressive disorder, recurrent, in remission Diagnosis: Principal Code(s): F33.40 - Major depressive disorder, recurrent, in remission, unspecified Status: Acute (2) Synthetic cannabinoid abuse Diagnosis: Secondary Code(s): F19.10 - Other psychoactive substance abuse, uncomplicated Status: Acute Discharge Disposition: Chemical dependency treatment program - Discharge Instructions Discharge Diet: Regular Diet Activities You Can Perform: Weight Bearing As Tolerat - Discharge Time <= 30 minutes Mental Status Examination Appearance: Appropriate Consciousness: Alert Orientation: x4 Motor Activity: Normal gait, Other (No motor abnormalities noted) Speech: Unremarkable Language: Adequate Fund of Knowledge: Adequate Attention and Concentration: Adequate Memory: Unremarkable Mood: Appropriate, Good Affect: Appropriate, Euthymic Thought Process & Associations: Intact, Logical, Goal directed, Linear Thought Content: Appropriate Hallucination Type: None Delusion Type: None Suicidal Ideation: No Suicidal Plan: No Suicidal Intention: No Homicidal Ideation: No Homicidal Plan: No Homicidal Intention: No Insight: Adequate Judgment: Adequate Discharge/Advance Care Plan - Results Vital Signs: Last Vital Signs Temp 98.1 F 11/05/18 05:05 Pulse 82 07/15/18 05:05 Resp 18 07/15/18 05:05 BP 99/55 L 07/15/18 05:05 Pulse Ox 95 07/15/18 05:05 Lab Results: Laboratory Results Hemoglobin A1c 5.8 % (4.3-6.0) 07/06/18 05:54 Triglycerides 117 mg/dL (42-150) 07/06/18 05:54 Cholesterol 170 mg/dL (120-200) 07/06/18 05:54 LDL Cholesterol, Calc 108 mg/dL (0-99) H 07/06/18 05:54 HDL Cholesterol 38.6 mg/dL (40.0-60.0) L 07/06/18 05:54 TSH 3.310 uIU/mL (0.358-3.740) 07/04/18 21:42 Urine Culture Comments Culture not ind 07/07/18 09:07 Summary of Procedures: None done. Imaging: ITS Impressions Abdomen/Pelvis CT 07/07/18 00:00 CONCLUSION: 1. Mixed density mass in the splenic bed measuring 7.8 x 4.5 cm across. It does abut the expected tail of the pancreas therefore could be a multiloculated pancreatic pseudocyst. Could also be residual hematoma possibly infected related to previous splenectomy. Some fluid does extend more superiorly to extend just underneath the left hemidiaphragm. Correlate for fever. 2. Mildly heterogeneous liver without focal masses. Pending Results: None - Medications Number of antipsychotic medications at discharge: 0 - Discharge Care Plan Goals to Promote Your Health: * To prevent worsening of your condition and complications * To maintain your health at the optimal level Directions to Meet Your Goals: Take your medications as prescribed Follow your dietary instruction Follow activity as directed Keep your appointments as scheduled Take your immunizations and boosters as scheduled If your symptoms worsen call your PCP, if no PCP go to Urgent Care Center or Emergency Room For 02/04 questions related to your inpatient stay or results of tests pending at discharge, please contact Dr. William Richardson MD at [phone] Smoking is Dangerous to Your Health. Avoid second hand smoking
[2018-07-15] MEDS: traZODone 100 MG Tablet PO SCH (21:17)
== END 2018-07-15 22:35 | disposition short-term general hospital (02) ==
LOC: NEPE 21:10 → NEDA 07-05 12:13 → H260 07-05 14:30
PROVIDERS: ADMIT Psychiatry & Neurology Psychiatry; ATTEND Psychiatry & Neurology Psychiatry